=== PATIENT | female | born 1940 | race Caucasian/White ===

== ENCOUNTER 2017-05-03 17:11 | Inpatient (IN) | payer MEDICARE, OTHER ==
[~2017-05-03] VITALS: Ht 149.9 cm; Wt 61.2 kg
[~2017-05-03 17:11] MED LIST: AMLO-145 PO; BENA20TA48 PO; LORA-441 PO; METF500T4 PO; PANT40TA4 PO; ZOLP10TA5 PO
--- NOTE | 2017-05-03 19:48 | ERD ---
ER Documentation Chief Complaint Date/Time DATE: 05/03/17 TIME: 19:44 Chief Complaint lower back pain rad down to caitlyn le HPI 76-year-old female presents here in emergency department for complaints of lower back pain that started 2 weeks ago. Patient describes the pain as sharp pain, 8/10 scale, is worse upon movement mildly better after taking ibuprofen. Patient has been seen in different emergency department for the same problems. Patient states that she was told by her primary care doctor to come to the emergency department that he will admit her to the hospital. Patient does not have any fever or chills. Patient denies any incontinence. Patient denies any direct trauma and affected area. Patient denies any numbness. Patient states that it is hard for her to walk because of the pain. ROS All systems reviewed and are negative except as per history of present illness. Medications Home Meds Active Scripts Pantoprazole (Protonix) 40 Mg Tabec, 40 MG PO DAILY, #30 TAB Prov:DIVYA AGUILAR MD 04/22/16 Amlodipine Besylate* (Amlodipine Besylate*) 5 Mg Tablet, 5 MG PO DAILY, #90 TAB Prov:DIVYA AGUILAR MD 04/22/16 Reported Medications Lorazepam* (Ativan*) 0.5 Mg Tablet, 0.5 MG PO HS Y for SLEEP, #30 TAB 07/28/16 Zolpidem Tartrate* (Zolpidem Tartrate*) 10 Mg Tablet, 10 MG PO QHS Y for INSOMNIA, #30 TAB 07/28/16 Metformin* (Glucophage*) 500 Mg Tab, 500 MG PO WITH LUNCH DINNER, #60 TAB 04/17/16 Benazepril Hcl* (Benazepril Hcl*) 20 Mg Tablet, 20 MG PO BID, #60 TAB 04/17/16 Allergies Allergies: Coded Allergies: Penicillins (Verified Allergy, Mild, 07/28/16) PMhx/Soc History of Surgery: Yes (LT NEPHRECTOMY, CHOLECYSTECTOMY, RT HIP AND KNEE SX, GASTRIC BYPASS) Anesthesia Reaction: No Hx Neurological Disorder: No Hx Respiratory Disorders: No Hx Cardiac Disorders: Yes (HTN, ) Hx Psychiatric Problems: Yes (Depression,) Hx Miscellaneous Medical Probl: Yes (HTN, RT FEMUR FX, DM DEPRESSION, S/P FALL) Hx Alcohol Use: No Hx Substance Use: No Hx Tobacco Use: No Smoking Status: Never smoker FmHx Family History: No coronary disease, No diabetes, No other Physical Exam Vitals Vital Signs Date Time Temp Pulse Resp B/P Pulse Ox O2 Delivery O2 Flow Rate FiO2 05/03/17 17:27 98.6 102 20 139/85 95 Physical Exam GENERAL: The patient is well developed and appropriate for usual state of health, in no apparent distress. CHEST: Clear to auscultation bilaterally. There are no rales, wheezes or rhonchi. HEART: Regular rate and rhythm. No murmurs, clicks, rubs or gallops. No S3 or S4. ABDOMEN: Soft, nontender and nondistended. Good bowel sounds. No rebound or guarding. No gross peritonitis. No gross organomegaly or masses. No Spencer sign or McBurney point tenderness. BACK: No midline or flank tenderness.Muscle spasms noted in the paraspinal aspect of the lumbar spine, positive straight leg test on both legs. EXTREMITIES: Equal pulses bilaterally. There is no peripheral clubbing, cyanosis or edema. No focal swelling or erythema. Full range of motion. Grossly neurovascularly intact. NEURO: Alert and oriented. Cranial nerves 2-12 intact. Motor strength in all 4 extremities with 5/5 strength. Sensation grossly intact. Normal speech and gait. SKIN: There is no apparent rash or petechia. The skin is warm and dry. HEMATOLOGIC AND LYMPHATIC: There is no evidence of excessive bruising or lymphedema. No gross cervical, axillary, or inguinal lymphadenopathy. Result Diagram: 05/03/17202705/03/172027 Results 24 hrs Laboratory Tests Test 05/03/17 20:11 05/03/17 20:28 Urine Color YELLOW Urine Clarity CLEAR Urine pH 5.0 Urine Specific [place] 1.021 Urine Ketones NEGATIVEmg/dL Urine Nitrite POSITIVEmg/dL Urine Bilirubin NEGATIVEmg/dL Urine Urobilinogen NEGATIVEmg/dL Urine Leukocyte Esterase 1+Domitila/ul Urine Microscopic RBC 1/HPF Urine Microscopic WBC 3/HPF Urine Bacteria FEW/HPF Urine Mucus FEW/HPF Urine Hemoglobin 1+mg/dL Urine Glucose NEGATIVEmg/dL Urine Total Protein NEGATIVEmg/dl White Blood Count 9.110^3/ul Red Blood Count 4.3610^6/ul Hemoglobin 12.4g/dl Hematocrit 39.5% Mean Corpuscular Volume 90.6fl Mean Corpuscular Hemoglobin 28.4pg Mean Corpuscular Hemoglobin Concent 31.4g/dl Red Cell Distribution Width 14.5% Platelet Count 05971^3/UL Mean Platelet Volume 10.9fl Neutrophils % 62.2% Lymphocytes % 28.4% Monocytes % 6.1% Eosinophils % 2.7% Basophils % 0.2% Nucleated Red Blood Cells % 0.0/100WBC Neutrophils # (Manual) 5.710^3/ul Lymphocytes # 2.610^3/ul Monocytes # 0.610^3/ul Eosinophils # 0.310^3/ul Basophils # 0.010^3/ul Nucleated Red Blood Cells # 0.010^3/ul Sodium Level 144mmol/L Potassium Level 5.1mmol/L Chloride Level 103mmol/L Carbon Dioxide Level 25mmol/L Anion Gap 21 Blood Urea Nitrogen 27mg/dl Creatinine 0.89mg/dl Glucose Level 127mg/dl Calcium Level 10.3mg/dl Total Bilirubin 0.1mg/dl Direct Bilirubin 0.00mg/dl Indirect Bilirubin 0.1mg/dl Aspartate Amino Transf (AST/SGOT) 25IU/L Alanine Aminotransferase (ALT/SGPT) 54IU/L Alkaline Phosphatase 205IU/L Total Protein 8.9g/dl Albumin 4.6g/dl Globulin 4.30g/dl Albumin/Globulin Ratio 1.06 Current Medications Medications (Trade) Dose Ordered Sig/Bryan Route PRN Reason Start Time Stop Time Status Last Admin Dose Admin Morphine Sulfate (morphine) 4 mg ONCE ONCE IM 05/03/17 20:30 05/03/17 20:30 DC Ondansetron HCl (Zofran Odt) 4 mg ONCE STAT ODT 05/03/17 20:02 05/03/17 20:05 DC Morphine Sulfate (morphine) 2 mg ONCE ONCE IV 05/03/17 20:30 05/03/17 20:31 DC 05/03/17 20:28 Ondansetron HCl (Zofran Inj) 4 mg ONCE STAT IV 05/03/17 20:03 05/03/17 20:05 DC 05/03/17 20:27 PROCEDURE: CT Lumbar Spine. CLINICAL INDICATION: Back pain TECHNIQUE: Continuous axial CT images were obtained. Sagittal and coronal reformations were created from the raw axial data. The images were reviewed on a PACS workstation. The calculated radiation dose measures 431 mGy centimeters. The CTDI measures 16 mGy One or more of the following dose reduction techniques were used: Automated exposure control. Adjustment of the mA and/or kV according to patient size. Use of iterative reconstruction technique. COMPARISON: None available FINDINGS: There is normal alignment of the lumbar spine. There is no evidence of subluxation. Vertebral body heights are preserved. There is severe disk space narrowing at L4-5. There is mild disk space narrowing from L1-L2 through L3- L4. No focal lytic or sclerotic lesions are identified. T12-L1: There is no visualized gross disc abnormality. There is minimal bilateral facet hypertrophy. No bony central or neural foraminal stenosis is identified. L1-L2: There is a minimal diffuse disk bulge. There is minimal bilateral facet hypertrophy. There is no central canal stenosis. There is no neural foraminal stenosis.. L2-L3: There is a mild to moderate diffuse disk bulge, 4 mm. There is minimal bilateral facet hypertrophy. There is minimal central canal stenosis. There is no bony foraminal stenosis.. L3-L4: There is a mild to moderate diffuse disk bulge, 4 mm. There is moderate bilateral facet hypertrophy. There is buckling of the epidural fat.. There is moderate central canal stenosis with AP canal diameter measuring 7.5 mm. There is mild left foraminal stenosis. There is no significant right foraminal stenosis.. L4-L5: There is a moderate diffuse disk bulge, up to approximately 6 mm. There is moderate bilateral facet hypertrophy. There is ligamentum flavum buckling. There is severe appearing central canal stenosis, with canal diameter measuring an estimated 6 x 7 mm. There is mild to moderate left and moderate right bony foraminal stenosis. L5-S1: There is a mild diffuse disk bulge. There is moderate bilateral facet hypertrophy. There is mild to moderate appearing central canal stenosis. There is minimal bilateral foraminal stenosis.. There is no abnormal paravertebral soft tissue mass. There is a left nephrectomy. IMPRESSION: 1. At L4-L5, there is severe appearing central canal stenosis, related to 6 mm disk bulge, moderate facet hypertrophy, and ligamentum flavum buckling. Moderate right and mild-moderate left foraminal stenosis. 2. At L3-L4, there is moderate appearing central canal stenosis, secondary to 4 mm disk bulge, moderate facet hypertrophy, and buckling of the epidural fat. 3. Mild to moderate disk bulge at L2-L3 and mild disk bulge at L5-S1. Mild to moderate appearing central canal stenosis at L5-S1. RPTAT: HBST .Raffaele Fernandez MD, Date Time Electronically viewed and signed by .Raffaele Fernandez MD, on 05/03/2017 21:02 .T/ CC: DELANEY BRITT NP Procedures/MDM Medical Decision Making: Patient's pain is most likely consistent with a back pain caused by degenerative disc disease , considering that intractable back pain, Dr Aguilar her PMD will admit patient for pain control. There is no suspicion for neurovascular compromise. Patient has intact sensation and circulation of the affected extremity and distal extremities. No incontinence, no suspicion for cauda equina syndrome, no saddle anesthesia, no symptoms of any acute bacterial infection, no symptoms of any perirectal abscesses, pilonidal cyst.There is low suspicion for septic arthritis. Patient does not have any fever. No symptoms of any aortic dissection or aortic aneurysm. Radiology exam not indicated at this time. Departure Diagnosis: Primary Impression: Degenerative disc disease Spinal region: lumbosacral Qualified Code: M51.37 - Degeneration of intervertebral disc of lumbosacral region Additional Impression: Intractable back pain Condition: Stable DELANEY BRITT NP May 03, 2017 19:48
[2017-05-03] MEDS ORDERED: ONDANSETRON (ODT) 4 MG TAB ODT STA (20:02)
[2017-05-03] MEDS ORDERED: ONDANSETRON 4 MG INJ IV STA (20:03)
[2017-05-03] MEDS ORDERED: morphine 10 MG INJ IM ONE (20:30)
[2017-05-03] MEDS ORDERED: morphine 2 MG INJ IV ONE (20:30)
[2017-05-03 20:55] LABS: BASOPHILS % 0.2 % (0.0-2.0); EOSINOPHILS # 0.3 10^3/ul (0.0-0.5); EOSINOPHILS % 2.7 % (0.0-7.0); HEMATOCRIT 39.5 % (37.0-47.0); HEMOGLOBIN 12.4 g/dl (12.0-16.0); LYMPHOCYTES # 2.6 10^3/ul (0.8-2.9); LYMPHOCYTES % 28.4 % (15.0-51.0); MEAN CORPUSCULAR HEMOGLOBIN 28.4 pg (29.0-33.0); MEAN CORPUSCULAR HGB CONC 31.4 g/dl (32.0-37.0); MEAN CORPUSCULAR VOLUME 90.6 fl (82.0-101.0); MEAN PLATELET VOLUME 10.9 fl (7.4-10.4); MONOCYTE # 0.6 10^3/ul (0.3-0.9); MONOCYTES % 6.1 % (0.0-11.0); NEUTROPHILS % 62.2 % (39.0-77.0); PLATELET COUNT 307 10^3/UL (140-415); RED BLOOD COUNT 4.36 10^6/ul (4.20-5.40); RED CELL DISTRIBUTION WIDTH 14.5 % (11.5-14.5); WHITE BLOOD COUNT 9.1 10^3/ul (4.8-10.8)
[2017-05-03 21:00] LABS: ADD UMIC YES; UR ASCORBIC ACID NEGATIVE (NEGATIVE); UR BACTERIA FEW /HPF (NONE SEEN); UR BILIRUBIN (Dip) NEGATIVE (NEGATIVE); UR BLOOD (Dip) 1+ mg/dL (NEGATIVE); UR CLARITY CLEAR (CLEAR); UR COLOR YELLOW (YELLOW); UR GLUCOSE (Dip) NEGATIVE (NEGATIVE); UR KETONES (Dip) NEGATIVE (NEGATIVE); UR LEUKOCYTE ESTERASE (Dip) 1+ Leu/ul (NEGATIVE); UR MUCUS FEW /HPF (NONE SEEN); UR NITRITE (Dip) POSITIVE (NEGATIVE); UR RBC 1 /HPF (0-5); UR SPECIFIC GRAVITY (Dip) 1.021 (1.003-1.030); UR TOTAL PROTEIN (Dip) NEGATIVE (NEGATIVE); UR UROBILINOGEN (Dip) NEGATIVE (NEGATIVE)
--- NOTE | 2017-05-03 21:03 | RADRPT ---
PROCEDURE: CT Lumbar Spine. CLINICAL INDICATION: Back pain TECHNIQUE: Continuous axial CT images were obtained. Sagittal and coronal reformations were creat ed from the raw axial data. The images were reviewed on a PACS workstation. The calculated radiatio n dose measures 431 mGy centimeters. The CTDI measures 16 mGy One or more of the following dose reduction techniques were used: Automated exposure control. Adjustment of the mA and/or kV according to patient size. Use of iterative reconstruction technique. COMPARISON: None available FINDINGS: There is normal alignment of the lumbar spine. There is no evidence of subluxation. Vertebral body h eights are preserved. There is severe disk space narrowing at L4-5. There is mild disk space narro wing from L1-L2 through L3-L4. No focal lytic or sclerotic lesions are identified. T12-L1: There is no visualized gross disc abnormality. There is minimal bilateral facet hypertrophy. No bony central or neural foraminal stenosis is identified. L1-L2: There is a minimal diffuse disk bulge. There is minimal bilateral facet hypertrophy. There is no central canal stenosis. There is no neural foraminal stenosis.. L2-L3: There is a mild to moderate diffuse disk bulge, 4 mm. There is minimal bilateral facet hyper trophy. There is minimal central canal stenosis. There is no bony foraminal stenosis.. L3-L4: There is a mild to moderate diffuse disk bulge, 4 mm. There is moderate bilateral facet hype rtrophy. There is buckling of the epidural fat.. There is moderate central canal stenosis with AP canal diameter measuring 7.5 mm. There is mild left foraminal stenosis. There is no significant ri ght foraminal stenosis.. L4-L5: There is a moderate diffuse disk bulge, up to approximately 6 mm. There is moderate bilater al facet hypertrophy. There is ligamentum flavum buckling. There is severe appearing central canal stenosis, with canal diameter measuring an estimated 6 x 7 mm. There is mild to moderate left and moderate right bony foraminal stenosis. L5-S1: There is a mild diffuse disk bulge. There is moderate bilateral facet hypertrophy. There is mild to moderate appearing central canal stenosis. There is minimal bilateral foraminal stenosis.. There is no abnormal paravertebral soft tissue mass. There is a left nephrectomy. IMPRESSION: 1. At L4-L5, there is severe appearing central canal stenosis, related to 6 mm disk bulge, moderate facet hypertrophy, and ligamentum flavum buckling. Moderate right and mild-moderate left foraminal stenosis. 2. At L3-L4, there is moderate appearing central canal stenosis, secondary to 4 mm disk bulge, mode rate facet hypertrophy, and buckling of the epidural fat. 3. Mild to moderate disk bulge at L2-L3 and mild disk bulge at L5-S1. Mild to moderate appearing c entral canal stenosis at L5-S1. RPTAT: HBST .Raffaele Fernandez MD, Date Time Electronically viewed and signed by .Raffaele Fernandez MD, on 05/03/2017 21:02 .T/
[2017-05-03 21:12] LABS: ALBUMIN 4.6 g/dl (3.3-4.9); ALBUMIN/GLOBULIN RATIO 1.06; BILIRUBIN,INDIRECT 0.1 mg/dl (0-1.1); BILIRUBIN,TOTAL 0.1 mg/dl (0.2-1.3); CALCIUM 10.3 mg/dl (8.4-10.2); CREATININE 0.89 mg/dl (0.44-1.00); POTASSIUM 5.1 mmol/L (3.5-5.1); TOTAL PROTEIN 8.9 g/dl (6.1-8.1)
[2017-05-03 22:44] VITALS: TEMP 98.6
[2017-05-03] MEDS ORDERED: BISACODYL 10 MG SUPP PR PRN (23:00)
[2017-05-03] MEDS ORDERED: LORAZEPAM 0.5 MG TAB PO PRN (23:00)
[2017-05-03] MEDS ORDERED: morphine 2 MG INJ IV PRN (23:00)
[2017-05-03] MEDS ORDERED: NACL 0.9% 3 ML SYG IV SCH (23:00)
[2017-05-03] MEDS ORDERED: DEXTROSE 50% 50 ML SYRINGE IV PRN ×2 (23:00)
[2017-05-03] MEDS ORDERED: BISACODYL (EC) 5 MG TAB PO PRN (23:00)
[2017-05-03] MEDS ORDERED: MAGNESIUM HYDROXIDE 30ML CUP PO PRN (23:00)
[2017-05-03] MEDS ORDERED: ALBUTEROL/IPRATROPIUM (NEB) 3 ML AMP HHN PRN (23:00)
[2017-05-03] MEDS ORDERED: GLUCOSE GEL 15 GRAM TUBE PO PRN ×2 (23:00)
[2017-05-03] MEDS ORDERED: ONDANSETRON 4 MG INJ IV PRN (23:00)
[2017-05-03] MEDS ORDERED: GLUCOSE GEL 15 GRAM TUBE BUCCAL PRN (23:00)
[2017-05-03] MEDS ORDERED: DOCUSATE SODIUM 100 MG CAP PO PRN (23:00)
[2017-05-03] MEDS ORDERED: GLUCAGON 1 MG INJ IM PRN (23:00)
[2017-05-03] MEDS ORDERED: NA PHOSPHATE/BIPHOS 133 ML ENEMA PR PRN (23:00)
[2017-05-03] MEDS ORDERED: ACETAMINOPHEN 325 MG TAB PO PRN (23:00)
[2017-05-03] MEDS ORDERED: ACET-141 PO (23:01)
[2017-05-03 23:10] VITALS: Ht 149.9 cm; Wt 61.2 kg
[2017-05-03 23:30] VITALS: BP 181/84; PULSE 61; RESP 20
[2017-05-04] MEDS: HYDROCODONE/APAP (5/325) TAB PO PRN ×3 (00:19→21:00)
[2017-05-04 00:55] VITALS: BP 159/72; PULSE 65; RESP 18
[2017-05-04] MEDS: ZOLPIDEM 5 MG TAB PO PRN ×2 (01:09→23:36)
[2017-05-04 05:30] LABS: BASOPHILS % 0.5 % (0.0-2.0); EOSINOPHILS # 0.3 10^3/ul (0.0-0.5); HEMOGLOBIN 10.9 g/dl (12.0-16.0); LYMPHOCYTES # 2.7 10^3/ul (0.8-2.9); LYMPHOCYTES % 33.6 % (15.0-51.0); MEAN CORPUSCULAR HGB CONC 32.1 g/dl (32.0-37.0); MEAN CORPUSCULAR VOLUME 90.4 fl (82.0-101.0); MEAN PLATELET VOLUME 10.1 fl (7.4-10.4); MONOCYTE # 0.8 10^3/ul (0.3-0.9); MONOCYTES % 10.1 % (0.0-11.0); NEUTROPHILS % 51.3 % (39.0-77.0); PLATELET COUNT 267 10^3/UL (140-415); RED BLOOD COUNT 3.76 10^6/ul (4.20-5.40); RED CELL DISTRIBUTION WIDTH 14.4 % (11.5-14.5); WHITE BLOOD COUNT 7.9 10^3/ul (4.8-10.8)
[2017-05-04 05:49] LABS: ALBUMIN 3.9 g/dl (3.3-4.9); ALBUMIN/GLOBULIN RATIO 1.25; BILIRUBIN,INDIRECT 0.1 mg/dl (0-1.1); BILIRUBIN,TOTAL 0.1 mg/dl (0.2-1.3); CALCIUM 9.5 mg/dl (8.4-10.2); CREATININE 0.9 mg/dl (0.44-1.00)
[2017-05-04 06:06] LABS: INR 1.02; PROTIME 13.4 Sec (12.2-14.2)
[2017-05-04 06:07] LABS: PARTIAL THROMBOPLASTIN TIME 28.2 Sec (25.0-35.0)
[2017-05-04 08:16] VITALS: BP 140/70; RESP 18
[2017-05-04] MEDS: PANTOPRAZOLE (EC) 40 MG TAB PO SCH (09:10)
[2017-05-04] MEDS: AMLODIPINE 5 MG TAB PO SCH (09:10)
[2017-05-04] MEDS: BENAZEPRIL 20 MG TAB PO SCH ×2 (09:10→21:00)
[2017-05-04] MEDS ORDERED: metFORMIN 500 MG TAB PO SCH (11:40)
--- NOTE | 2017-05-04 13:58 | HP ---
Date/Time of Note Date/Time of Note DATE: 05/04/17 TIME: 13:52 Assessment/Plan VTE Prophylaxis VTE Prophylaxis Intervention: SCD's Lines/Catheters IV Catheter Type (from Nrsg): Peripheral IV Urinary Cath still in place: No Assessment/Plan Assessment/Plan 1/ Severe central spinal canal stenosis causing Acute on chronic intractable pain 2. debility due to back pain 3. HTN 4. HL 5. Borderline DM- not on any meds 6. h/o Renal cell CA s/p Right nephrectomy 7. L4-L5, there is severe appearing central canal stenosis, related to 6 mm disk bulge, moderate facet hypertrophy, and ligamentum flavum buckling. Moderate right and mild-moderate left foraminal stenosis. Plan: admit to med/surge floor neurosurgeyr Dr.sean simmons has been consulted to evaluate pt for central spinal canal stenosis pain control with tylenol, norco and IV morhpine d/c Metformin since pt said she has not been taking it BP stable Physical therapy evaluation and treatment pt will need SNF placement HPI/ROS Admit Date/Time Admit Date/Time May 03, 2017 at 21:24 Hx of Present Illness 76-year-old female presented with back pain which has been going on for last two weeks.. Patient describes the pain as sharp pain, 8/10 scale, is worse upon movement mildly better after taking ibuprofen. Patient has been seen in different emergency department for the same problems. Patient states that she was told by her primary care doctor to come to the emergency department that he will admit her to the hospital. Patient does not have any fever or chills. Patient denies any incontinence. Patient denies any direct trauma and affected area. Patient denies any numbness. Patient states that it is hard for her to walk because of the pain. Initial CT lumbar spine ROS back pain, leg pain left, Inability to walk Constitutional: no complaints Eyes: no complaints ENT: no complaints Respiratory: no complaints Cardiovascular: no complaints Gastrointestinal: no complaints Musculoskeletal: back pain, bone/joint pain, neck pain, restricted range of motion Skin: no complaints Neurologic: no complaints Endocrine: no complaints Lymphatic: no complaints Psychological: no complaints Immunologic: no complaints PMH/Family/Social Past Medical History Medical History: high cholesterol, hypertension, other (depression, h/o RCC s/ p right nephrectomy ) Past Surgical History Past Surgical Hx: cholecystectomy, other (nephrectomy, gastric bypass surgery, h/o Right nephrectomy for renal cell CA ) Family History Significant Family History: no pertinent family hx Social History Alcohol Use: none Smoking Status: Never smoker Drug Use: none Exam/Review of Systems Vital Signs Vitals Vital Signs Date Time Temp Pulse Resp B/P Pulse Ox O2 Delivery O2 Flow Rate FiO2 05/04/17 08:16 97.8 18 140/70 94 05/04/17 00:55 65 Room Air Intake and Output 05/03/17 05/03/17 05/04/17 15:00 23:00 07:00 Intake Total 200 ml Balance 200 ml Exam Constitutional: alert Psych: no complaints Head: normocephalic Eyes: nl conjunctiva ENMT: nl external ears & nose Neck: non-tender, supple Respiratory: clear to auscultation, normal air movement Cardiovascular: nl pulses, regular rate and rhythm Gastrointestinal: non-tender, soft Musculoskeletal: joint tenderness, muscle weakness, nl extremities to inspection, other (spine TTP ), range of motion (limited range of motion due to severe pain ) Extremities: calf tenderness, normal pulses Neurological: RN HEDIS II-XII intact Labs Result Diagram: 05/04/17 0505/04/17 0512 Medications Medications Current Medications Amlodipine Besylate (Norvasc) 5 mg DAILY PO Last administered on 05/04/17 09: 10; Admin Dose 5 MG; Start 05/04/17 at 09:00 Benazepril HCl (Lotensin) 20 mg BID PO Last administered on 05/04/17 09:10; Admin Dose 20 MG; Start 05/04/17 at 09:00 Lorazepam (Ativan) 0.5 mg HS PRN PO SLEEP; Start 05/03/17 at 23:00 Pantoprazole (Protonix Tab) 40 mg DAILY PO Last administered on 05/04/17 09:10 ; Admin Dose 40 MG; Start 05/04/17 at 09:00 Zolpidem Tartrate (Ambien) 10 mg QHS PRN PO INSOMNIA Last administered on 01:09; Admin Dose 10 MG; Start 05/03/17 at 23:00 Ondansetron HCl (Zofran Inj) 4 mg Q4H PRN IV NAUSEA AND/OR VOMITING; Start at 23:00 Acetaminophen (Tylenol Tab) 650 mg Q6H PRN PO PAIN LEVEL 1-3 OR FEVER; Start at 23:00 Acetaminophen/ Hydrocodone Bitart ([place] (5/325)) 1 tab Q4H PRN PO MODERATE PAIN LEVEL 4-6 Last administered on 05/04/17t 13:26; Admin Dose 1 TAB; Start at 23:00 Morphine Sulfate (morphine) 2 mg Q4H PRN IV SEVERE PAIN LEVEL 7-10; Start 05/03 at 23:00 Docusate Sodium (Colace) 100 mg Q12H PRN PO CONSTIPATION; Start 05/03/17 at 23: 00 Magnesium Hydroxide (Milk Of Mag) 30 ml DAILY PRN PO CONSTIPATION; Start at 23:00 Bisacodyl (Dulcolax) 5 mg DAILY PRN PO CONSTIPATION; Start 05/03/17 at 23:00 Bisacodyl (Dulcolax Supp) 10 mg DAILY PRN [place] CONSTIPATION; Start 05/03/17 at 23 :00 Sodium Biphosphate/ Sodium Phosphate (Fleet Enema) 133 ml DAILY PRN UT CONSTIPATION; Start 05/03/17 at 23:00 Miscellaneous Information 1 ea NOTE XX ; Start 05/03/17 at 23:00 Glucose (Glutose) 15 gm Q15M PRN PO DECREASED GLUCOSE; Start 05/03/17 at 23:00 Glucose (Glutose) 22.5 gm Q15M PRN PO DECREASED GLUCOSE; Start 05/03/17 at 23: 00 Dextrose (D50w Syringe) 25 ml Q15M PRN IV DECREASED GLUCOSE; Start 05/03/17 at 23:00 Dextrose (D50w Syringe) 50 ml Q15M PRN IV DECREASED GLUCOSE; Start 05/03/17 at 23:00 Glucagon (Glucagen) 1 mg Q15M PRN IM DECREASED GLUCOSE; Start 05/03/17 at 23:00 Glucose (Glutose) 15 gm Q15M PRN BUCCAL DECREASED GLUCOSE; Start 05/03/17 at 23 :00 DIVYA FAN MD May 04, 2017 13:58
[2017-05-04 15:05] VITALS: BP 132/75; RESP 18
[2017-05-04 20:20] VITALS: BP 128/71; RESP 18
--- NOTE | 2017-05-04 20:44 | CONS ---
DATE OF ADMISSION: 05/03/2017 DATE OF CONSULTATION: 05/04/2017 REASON FOR CONSULTATION: Preoperative evaluation. REFERRING PHYSICIAN: Alfonso Aguilar MD HISTORY OF PRESENT ILLNESS: Ms. Delaney is a 76-year-old female with a history of hypertension, diet-controlled diabetes, dyslipidemia, and renal cell carcinoma, status post right nephrectomy, who presented with complaints of worsening lower extremity pain and weakness, difficulty standing. Patient subsequently presented to the emergency room, where upon arrival, temperature is 98.6, blood pressure 139/85, pulse 102, respiratory rate 20, satting 95 percent. Patient's labs: White blood count 9.1, hemoglobin 12.4, platelet count 307. A sodium 144, potassium 5.1, creatinine 0.8, BUN 27, AST 25, ALT 24, alk phos 205. INR 1.0. UA borderline positive. Patient underwent a lumbar spine CT, revealing L4-L5 severe-appearing central canal stenosis related to a 6-mm disc bulge, moderate facet hypertrophy and ligamentum flavum buckling, moderate right and mild-to- moderate left foraminal stenosis. At L3-L4 there is moderate- appearing central canal stenosis secondary to a 4-mm disc bulge, mild to moderate disc bulge at L2-L3, mild disc bulge at L5-S1 and mild to moderate-appearing central canal stenosis at L5-S1. Patient does not have a chart for my review at this time. Patient denies any recent chest pain, shortness of breath and states prior to onset of symptoms approximately 4 weeks ago, she would walk most places without any significant exertional chest pain or dyspnea on exertion. PAST MEDICAL HISTORY: As above in HPI, this patient has a history of cholecystectomy and by chart, also a possible history of a gastric bypass, but unclear if this is true. MEDICATION: Currently in hospital: 1. Norvasc 5 mg daily. 2. Benazepril 10 mg p.o. b.i.d. 3. Protonix 40 mg daily. 4. Ambien p.r.n. 5. Zofran p.r.n. 6. Tylenol p.r.n. 7. Orovada p.r.n. 8. . 9. Dulcolax suppository p.r.n. 10. DuoNeb p.r.n. ALLERGIES: PENICILLIN. SOCIAL HISTORY: No tobacco, EtOH or illicit drug use. FAMILY HISTORY: Negative for sudden cardiac or early CAD. REVIEW OF SYSTEMS: As above in HPI. CONSTITUTIONAL: No fevers or chills. RESPIRATORY: No current shortness of breath. CARDIOVASCULAR: No current chest pain. GASTROINTESTINAL: No vomiting. GENITOURINARY: No hematuria. MUSCULOSKELETAL: Back pain, lower extremity pain and weakness. PSYCHIATRIC: Possible depression. NEUROLOGIC: No documented CVA. PHYSICAL EXAMINATION: VITAL SIGNS: Temperature of 98.2, blood pressure most recent 132/75, pulse 86, respiratory rate 18, satting 92 percent. GENERAL: The patient is alert, awake, in no acute distress. NECK: JVP approximately 8-9 cm of water. LUNGS: Fair air movement throughout. HEART: Regular rate and rhythm. Normal S1, S2, 1/6 systolic murmur. Nondisplaced PMI. ABDOMEN: Positive bowel sounds. Soft. EXTREMITIES: No pitting edema, 1 plus pulses. Bilateral posterior tibial. LABORATORY: As above in HPI, with most recently from today: Sodium 144, potassium 5.0, creatinine 0.9, BUN of 27. White blood cell count 7.9, hemoglobin 10.9, platelet count 267. UA positive. IMAGING STUDIES: As above in HPI. No further imaging studies for my review at this time. No electrocardiograms for my review at this time. IMPRESSION: 1. Preoperative evaluation prior to possible lumbosacral spinal surgery for spinal stenosis. 2. Hypertension, under reasonable control on current medications. 3. Systolic murmur, short. 4. Spinal stenosis. 5. Lower extremity weakness. 6. Diet-controlled diabetes mellitus. RECOMMENDATIONS: 1. At this time, would check a baseline EKG now and a repeat EKG in the morning. 2. Would check troponins q.6h x2, in anticipation of possible upcoming surgery. Just discharged. Patient has not had any recent acute coronary syndromes. 3. Will consider initiation of beta dheeraj in this patient after review of the patient's ECG or echo if found to have abnormalities. 4. Will check a 2D echo to further assess ejection fraction, wall motion or any major abnormalities and will check a fasting lipid panel for general risk stratification and initiate lipid- lowering medications, if necessary. 5. Continue the patient's current Norvasc and benazepril for blood pressure control at this time. 6. Continue patient's pain control. 7. Ongoing neurologic evaluation with pending MRI and possible neurosurgery soon. Thank you for allowing me to take part in the care of this patient. I will continue to follow him very closely with you, with further recommendations pending his surgical candidacy of this patient to be made after completion of above studies. Dictated By: Flakito Campos /dougie/clarisa /Document#: [id number] CC: Alfonso Aguilar MD;*End*
--- NOTE | 2017-05-04 22:26 | RADRPT ---
PROCEDURE: MRI lumbar spine CLINICAL INDICATION: Low back pain with bilateral lower extremity radiculopathy TECHNIQUE: An MRI of the lumbar spine was performed on a high resolution high definition, MRI scan ner utilizing the following sequences: Sagittal T1 weighted, sagittal and dual echo axial T2 weighte d, and sagittal T2 weighted with fat saturation. COMPARISON: None FINDINGS: There is straightening of the normal lordosis of the lumbar spine. No evidence for acute fractures o r traumatic subluxations are present. Modic type 1 degenerative endplate changes are present at the L4-5 level. Preservation of vertebral body heights are noted.. The discs demonstrate disk desiccati on at the L2-3 through L5-S1 levels and severe disk space height loss at L4-5. 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 The conus m edullaris terminates normally at the L1 level. The bilateral paravertebral soft tissues are normal. The specific axial levels are as follows: T12 - L1: The disk is normal in appearance. The central canal, subarticular recess, and neural fo ramen are patent. Mild bilateral facet arthropathy is present. L1 - L2: The disk is normal in appearance. The central canal, subarticular recess, and neural for amen are patent. Mild bilateral facet arthropathy is present. L2 - L3: Disk desiccation is present. An eccentric bulge and osteophyte to the left is noted which measures 3 mm. Mild bilateral facet arthropathy and ligamentum flavum hypertrophy is present. AP canal dimension is 8.1 mm. This results in a mild central canal stenosis, moderate left subarticula r recess stenosis and moderate left and mild right neural foraminal stenosis. Recommend correlatio n with a left greater than right L2 radiculopathy. L3 - L4: Disk desiccation is present with a 3 mm mild broad-based bulge. Mild bilateral facet arth ropathy and facet effusions are present. AP canal dimension is 6.5 mm. This results in a moderate to severe central canal stenosis, bilateral subarticular recess stenosis and mild bilateral neural f oraminal stenosis. Recommend correlation with a bilateral L3 radiculopathy. L4 - L5: Severe degenerative endplate changes, disk desiccation and disk space height loss is prese nt. A 3 mm mild broad-based bulge and osteophyte is noted. AP canal dimension is 4 mm. Moderate b ilateral facet arthropathy and ligamentum hypertrophy is also present. Congenital short pedicles con tributes to the acquired stenosis at this level. These findings results in a severe central, bilater al subarticular recess and severe bilateral neural foraminal stenosis. Recommend correlation with a bilateral L4 radiculopathy secondary to neural foraminal stenosis and a bilateral L5 radiculopathy secondary to subarticular recess severe stenosis. L5 - S1: Disk desiccation is present with preservation of disk space height. Mild 3 mm broad-based bulge is present. Moderate right greater than left facet osteoarthropathy and ligamentum hypertrop hy is present. AP canal dimension is 5.5 mm. Moderate to severe central canal stenosis, mild bilate ral subarticular recess stenosis and mild bilateral neural foraminal stenosis is present. Recommend correlation with a bilateral L5 and S1 radiculopathy. IMPRESSION: 1. Straightening of the normal lumbar lordosis without acute fractures or traumatic subluxations. 2. Congenital superimposed on acquired spinal canal stenosis as noted above at the L2-3 through L5- S1 levels. 3. Broad-based disk osteophyte complex with degenerative facet osteoarthropathy resulting in a cezar re central canal stenosis at L4-5, moderate to severe at L3-4 and L5-S1 and mild at L2-3. 4. Multilevel neural foraminal stenosis at the L2-3 through L5-S1 levels and correlate with respect frank radiculopathy as noted above. 5. Multilevel disk desiccation at L2-3 through L5-S1 with severe disk space height loss and degener ative endplate changes at L4-5 . 6. 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 RPTAT: HDC .Monica Fatima MD, MD Date Time Electronically viewed and signed by .Monica Fatima MD, on 05/04/2017 22:25 .C/
[2017-05-05] MEDS: DEXTROSE 5%-0.45% NACL 1,000 ML IV SCH (00:18)
[2017-05-05 06:15] LABS: CHOL/HDL RATIO 2.4 RATIO
--- NOTE | 2017-05-05 06:52 | CONS ---
Date/Time of Note Date/Time of Note DATE: 05/05/17 TIME: 06:51 Assessment/Plan Assessment/Plan Additional Assessment/Plan Date of consultation: 05/04/2017 Consulting service: Neurosurgery. Requesting physician: Dr. Alfonso Aguilar This 76-year-old female with approximately 6-8 weeks history of increasing axial low back pain and to a much greater degree bilateral lower extremity radiating pain, numbness and weakness down to her ankles. The patient tells me that initially with the above symptoms began, She was able to walk around, but with pain. However, for the past several weeks, She is no longer able to walk or stand for more than 1 or 2 minutes at a time secondary to bilateral lower extremity symptoms as described above. The patient's above symptoms seem to be greatly decreased with her lying down or sitting. Patient denies any bowel or bladder dysfunction. He denies any saddle anesthesia. She denies any recent trauma to her low back or lower extremities. The patient has had degenerative changes of her knees and has had prior injections to her knees. However, the patient denies any prior episodes of low back pain or bilateral lower extremity symptoms that she is describing currently. The patient's symptoms were so severe that she actually presented to the [facility] emergency room about a week ago for the same symptoms and was told that she has lumbar stenosis and needs to follow up with a neurosurgeon. However, the patient's symptoms increased further and the patient needed to present to the emergency department again this time to [facility] and has subsequently been admitted. Past medical history: Hypercholesterolemia, hypertension, depression Past surgical history: History of renal cell cancer status post nephrectomy, cholecystectomy, gastric bypass surgery Family history: Noncontributory. Review of systems: Please see above for pertinent positives and negatives. The patient denies chest pain, shortness of breath, fevers, or heartburn Allergies: Penicillin? Social history: The patient lives with several grandchildren. She denies smoking tobacco, drinking alcoholic beverages, or use of illicit or recreational drugs. Physical examination: The patient is seen at bedside. She is obese. She is awake, alert and oriented 4. Extraocular movements are grossly normal. Face is symmetric. Motor strength bilateral upper extremities is 5 minus out of 5 proximally and distally. Motor strength in bilateral lower extremities is 4 out of 5, at least bilateral lower extremity's proximally and distally except for bilateral EHLs that are 4 out of 5 and bilateral ankle dorsiflexion that is 4+ out of 5 and bilateral ankle plantar flexion that is 4+ out of 5. Some of the examination is limited secondary to bilateral lower extremity pain. Sensation to light touch seems to be decreased bilateral lower extremities in the L5 versus S1 dermatomes. Deep tendon reflexes are hypoactive bilateral upper and lower extremities. Muscle bulk and tone is normal bilateral upper and lower extremities. Straight leg raise more than 30 laterally causes radiating pain down bilateral lower extremities and to a lesser extent axial low back pain. The patient has [id number] tenderness involving the midline and over the paraspinal lumbosacral regions. There is no peroneal anesthesia. Rectal examination has been deferred per patient request. Gait testing cannot be done because the patient is unable to stand or walk secondary to bilateral lower extremity symptoms as described above. Imaging: The patient has received a CT of the lumbar spine that shows multilevel lumbar spondylotic changes. Seems to be at least moderate to severe stenosis involving the L4-L5 level and to a lesser degree at L3-L4 and L5-S1 levels. However, this is only a CT of the lumbar spine and not an MRI and further interpretation for lumbar stenosis is limited on a CT scan alone. Assessment/plan: This is an elderly female with approximately 6-8 weeks of symptoms that seem to be consistent with neurogenic claudication and lumbar radiculopathy secondary to lumbar stenosis. The patient's CT of the lumbar spine does seem to suggest that the patient does have lumbar stenosis at least at L4-L5. However, as I have explained to the patient in great detail an MRI is gold standard in further assessing the patient's spinal canal and to evaluate for lumbar stenosis or any other possible pathology involving the neural elements. An MRI of the lumbar spine has been already ordered. I have also discussed the various treatment options for lumbar stenosis including further observation/physical therapy, pain medications versus interventional pain management including lumbar epidural steroid injections versus surgical decompression that can be done minimally invasively. The patient says that at this point, she is completely debilitated and unable to walk. She does not want to wait any longer. She is less inclined to proceed with interventional pain management. Given the fact that she would still need to wait to be referred to an interventional pain management physician and she also wants a more definitive treatment of her pathology rather than transient possible improvement of her symptoms with lumbar epidural steroid injection. I have explained to the patient that I will further discuss the MRI findings of the lumbar spine Once the imaging studies are done. This can also be explained to the patient's family members. At that time. If the patient wishes to proceed with lumbar laminectomy and possible microdiscectomy, she will be scheduled for the operation. Medical and cardiac clearance will also be obtained preoperatively. ADRIANA FREEMAN MD May 05, 2017 06:52
--- NOTE | 2017-05-05 07:51 | RADRPT ---
PROCEDURE: XR Chest 1 View. CLINICAL INDICATION: Shortness of breath. TECHNIQUE: AP view of the chest was obtained. COMPARISON: March 03, 2008 FINDINGS: The cardiomediastinal silhouette is within normal limits. Mildly elevated right hemidiaphragm is obs erved. Subsegmental atelectasis is noted at the right lung base. No consolidations are identified. No pneumothorax is seen. Osseous structures are intact. IMPRESSION: Elevated right hemidiaphragm with associated basilar atelectasis. RPTAT: AA .Joni Oakes MD, Date Time Electronically viewed and signed by .Joni Oakes MD, on 05/05/2017 07:50 .P/
[2017-05-05 08:15] VITALS: BP 130/60; RESP 18
[2017-05-05] MEDS: BENAZEPRIL 20 MG TAB PO SCH ×2 (08:33→21:03)
[2017-05-05] MEDS: PANTOPRAZOLE (EC) 40 MG TAB PO SCH (08:33)
[2017-05-05] MEDS: AMLODIPINE 5 MG TAB PO SCH (08:34)
--- NOTE | 2017-05-05 09:39 | PN ---
Date/Time of Note Date/Time of Note DATE: 05/05/17 TIME: 09:36 Assessment/Plan VTE Prophylaxis VTE Prophylaxis Intervention: SCD's Lines/Catheters IV Catheter Type (from Nrsg): Peripheral IV Urinary Cath still in place: No Assessment/Plan Assessment/Plan 1/ Severe central spinal canal stenosis causing Acute on chronic intractable pain,acute lumbar radiculopathy 2. Severe debility due to back pain and Inability to walk safely 3. HTN 4. HL 5. Borderline DM- not on any meds 6. h/o Renal cell CA s/p Right nephrectomy 7. L4-L5, there is severe appearing central canal stenosis, related to 6 mm disk bulge, moderate facet hypertrophy, and ligamentum flavum buckling. Moderate right and mild-moderate left foraminal stenosis. Plan: S/p Neurosurgery consult, Dr.Sean Frey saw pt, MRI LS spine done, Plan for laminectomy today if cleared 12 lead EKG NSR< CXR negative, CBC, CMP, coagulation panel unremarkable- pt is medically stable for surgery with appropriate surgical risks and complications, Cardiolgoy saw pt, pt is to have ECHO today prior to surgery pain control with tylenol, norco and IV morhpine- pain management has been consulted for better pain control BP stable Physical therapy evaluation and treatment pt will need SNF placement Subjective 24 Hr Interval Summary Free Text/Dictation no acute events, Bp stable, afebrile, No c hst pain, pre op negative Exam/Review of Systems Vital Signs Vitals Vital Signs Date Time Temp Pulse Resp B/P Pulse Ox O2 Delivery O2 Flow Rate FiO2 05/05/17 08:15 98.1 79 18 130/60 98 05/04/17 00:55 Room Air Intake and Output 05/04/17 05/04/17 05/05/17 15:00 23:00 07:00 Intake Total 520 ml 550 ml Output Total 700 ml Balance 520 ml -150 ml Exam Constitutional: alert Psych: no complaints Head: normocephalic Eyes: nl conjunctiva ENMT: nl external ears & nose Neck: non-tender, supple Respiratory: clear to auscultation, normal air movement Cardiovascular: nl pulses, regular rate and rhythm Gastrointestinal: non-tender, soft Musculoskeletal: joint tenderness, muscle weakness, nl extremities to inspection, other (spine TTP ), range of motion (limited range of motion due to severe pain ) Extremities: calf tenderness, normal pulses Neurological: SPINAL SURGEON II-XII intact Results Result Diagram: 05/04/17 0511 05/04/17 0512 Results 24 hrs Laboratory Tests Test 05/05/17 00:25 05/05/17 05:05 Troponin I < 0.012 < 0.012 Triglycerides Level 184 H Cholesterol Level 140 LDL Cholesterol, Calculated 45 HDL Cholesterol 58 Cholesterol/HDL Ratio 2.4 Medications Medications Current Medications Amlodipine Besylate (Norvasc) 5 mg DAILY PO Last administered on 05/05/17 08: 34; Admin Dose 5 MG; Start 05/04/17 at 09:00 Benazepril HCl (Lotensin) 20 mg BID PO Last administered on 05/05/17 08:33; Admin Dose 20 MG; Start 05/04/17 at 09:00 Lorazepam (Ativan) 0.5 mg HS PRN PO SLEEP; Start 05/03/17 at 23:00 Pantoprazole (Protonix Tab) 40 mg DAILY PO Last administered on 05/05/17 08:33 ; Admin Dose 40 MG; Start 05/04/17 at 09:00 Zolpidem Tartrate (Ambien) 10 mg QHS PRN PO INSOMNIA Last administered on 23:36; Admin Dose 10 MG; Start 05/03/17 at 23:00 Ondansetron HCl (Zofran Inj) 4 mg Q4H PRN IV NAUSEA AND/OR VOMITING Last administered on 05/04/17 22:42; Admin Dose 4 MG; Start 05/03/17 at 23:00 Acetaminophen (Tylenol Tab) 650 mg Q6H PRN PO PAIN LEVEL 1-3 OR FEVER; Start at 23:00 Acetaminophen/ Hydrocodone Bitart ([place] (5/325)) 1 tab Q4H PRN PO MODERATE PAIN LEVEL 4-6 Last administered on 05/04/17 21:00; Admin Dose 1 TAB; Start at 23:00 Morphine Sulfate (morphine) 2 mg Q4H PRN IV SEVERE PAIN LEVEL 7-10; Start 05/03 at 23:00 Docusate Sodium (Colace) 100 mg Q12H PRN PO CONSTIPATION; Start 05/03/17 at 23: 00 Magnesium Hydroxide (Milk Of Mag) 30 ml DAILY PRN PO CONSTIPATION; Start at 23:00 Bisacodyl (Dulcolax) 5 mg DAILY PRN PO CONSTIPATION; Start 05/03/17 at 23:00 Bisacodyl (Dulcolax Supp) 10 mg DAILY PRN [place] CONSTIPATION; Start 05/03/17 at 23 :00 Sodium Biphosphate/ Sodium Phosphate (Fleet Enema) 133 ml DAILY PRN ND CONSTIPATION; Start 05/03/17 at 23:00 Miscellaneous Information 1 ea NOTE XX ; Start 05/03/17 at 23:00 Glucose (Glutose) 15 gm Q15M PRN PO DECREASED GLUCOSE; Start 05/03/17 at 23:00 Glucose (Glutose) 22.5 gm Q15M PRN PO DECREASED GLUCOSE; Start 05/03/17 at 23: 00 Dextrose (D50w Syringe) 25 ml Q15M PRN IV DECREASED GLUCOSE; Start 05/03/17 at 23:00 Dextrose (D50w Syringe) 50 ml Q15M PRN IV DECREASED GLUCOSE; Start 05/03/17 at 23:00 Glucagon (Glucagen) 1 mg Q15M PRN IM DECREASED GLUCOSE; Start 05/03/17 at 23:00 Glucose 15 gm 15 gm Q15M PRN BUCCAL DECREASED GLUCOSE; Start 05/03/17 at 23:00 Dextrose/Sodium Chloride (D5-1/2ns) 1,000 ml @ 40 mls/hr Q24H IV Last administered on 05/05/17t 00:18; Admin Dose 40 MLS/HR; Start 05/05/17 at 00:30 DIVYA FAN MD May 05, 2017 09:39
[2017-05-05] MEDS: HYDROCODONE/APAP (5/325) TAB PO PRN (15:53)
--- NOTE | 2017-05-05 17:05 | RADRPT ---
Vent Rate: 66 bpm RR Interval: 0 msec TN Interval: 186 msec QRS Duration: 70 msec QT Interval: 404 msec QTC Interval: 423 msec P-R-T [place]: 39 - 50 - 64 degrees Normal sinus rhythm Normal ECG Electronically Signed By: Isaias Brown [id number]
[2017-05-05] MEDS ORDERED: 1/2 NS + KCL 20 MEQ 1,000 ML IV SCH (20:00)
--- NOTE | 2017-05-05 20:12 | CONS ---
Date/Time of Note Date/Time of Note DATE: 05/05/17 TIME: 20:08 Assessment/Plan Assessment/Plan Chief Complaint/Hosp Course IMPRESSION: 1. Preoperative evaluation prior to possible lumbosacral spinal surgery for spinal stenosis.-negative trop x 2/no changes on serial ecg 2. Hypertension, under reasonable control on current medications. 3. Systolic murmur, short. 4. Spinal stenosis. 5. Lower extremity weakness. 6. Diet-controlled diabetes mellitus. Recc: -Serial ecg's -continue norvasc/benazepril -will f/u echo and if no sig abnl then will will be ok to proceed to OR at moderate risk without further noninvasive evaluation -check post-op ecg -Pain control Problems: Consultation Date/Type/Reason Admit Date/Time May 03, 2017 at 21:24 Initial Consult Date 05/04/2017 Type of Consultation: cardiology Reason for Consultation preop Referring Provider: DIVYA FAN MD Exam/Review of Systems Vital Signs Vitals Vital Signs Date Time Temp Pulse Resp B/P Pulse Ox O2 Delivery O2 Flow Rate FiO2 05/05/17 08:15 98.1 79 18 130/60 98 05/04/17 00:55 Room Air Intake and Output 05/04/17 05/04/17 05/05/17 15:00 23:00 07:00 Intake Total 520 ml 550 ml Output Total 700 ml Balance 520 ml -150 ml Exam Review of Systems: CONSTITUTIONAL: No fevers, chills. PULMONARY: No sob CARDIOVASCULAR: No chest pain/palpitations GASTROINTESTINAL: No nausea/vomiting. GENITOURINARY: No hematuria/dysuria. MUSCULOSKELETAL: No myagias/arthalgias. PSYCHIATRIC: The patient denies depression. NEUROLOGIC: No weakness Constitutional: alert Psych: no complaints Head: normocephalic ENMT: mucosa pink and moist Neck: jvd (8 cm water), supple Respiratory: clear to auscultation Cardiovascular: regular rate and rhythm Gastrointestinal: non-tender, soft Musculoskeletal: muscle tone (normal) Extremities: edema (none) Neurological: other (No focal deficits) Results Result Diagram: 05/04/17 0511 05/04/17 0512 Results 24 hrs Laboratory Tests Test 05/05/17 00:25 05/05/17 05:05 Troponin I < 0.012 < 0.012 Triglycerides Level 184 H Cholesterol Level 140 LDL Cholesterol, Calculated 45 HDL Cholesterol 58 Cholesterol/HDL Ratio 2.4 Medications Medications Current Medications Amlodipine Besylate (Norvasc) 5 mg DAILY PO Last administered on 05/05/17 08: 34; Admin Dose 5 MG; Start 05/04/17 at 09:00 Benazepril HCl (Lotensin) 20 mg BID PO Last administered on 05/05/17 08:33; Admin Dose 20 MG; Start 05/04/17 at 09:00 Lorazepam (Ativan) 0.5 mg HS PRN PO SLEEP; Start 05/03/17 at 23:00 Pantoprazole (Protonix Tab) 40 mg DAILY PO Last administered on 05/05/17 08:33 ; Admin Dose 40 MG; Start 05/04/17 at 09:00 Zolpidem Tartrate (Ambien) 10 mg QHS PRN PO INSOMNIA Last administered on 23:36; Admin Dose 10 MG; Start 05/03/17 at 23:00 Ondansetron HCl (Zofran Inj) 4 mg Q4H PRN IV NAUSEA AND/OR VOMITING Last administered on 05/04/17 22:42; Admin Dose 4 MG; Start 05/03/17 at 23:00 Acetaminophen (Tylenol Tab) 650 mg Q6H PRN PO PAIN LEVEL 1-3 OR FEVER; Start at 23:00 Acetaminophen/ Hydrocodone Bitart ([place] (5/325)) 1 tab Q4H PRN PO MODERATE PAIN LEVEL 4-6 Last administered on 05/05/17 15:53; Admin Dose 1 TAB; Start at 23:00 Morphine Sulfate (morphine) 2 mg Q4H PRN IV SEVERE PAIN LEVEL 7-10; Start 05/03 at 23:00 Docusate Sodium (Colace) 100 mg Q12H PRN PO CONSTIPATION; Start 05/03/17 at 23: 00 Magnesium Hydroxide (Milk Of Mag) 30 ml DAILY PRN PO CONSTIPATION Last administered on 05/05/17 16:07; Admin Dose 30 ML; Start 05/03/17 at 23:00 Bisacodyl (Dulcolax) 5 mg DAILY PRN PO CONSTIPATION; Start 05/03/17 at 23:00 Bisacodyl (Dulcolax Supp) 10 mg DAILY PRN [place] CONSTIPATION; Start 05/03/17 at 23 :00 Sodium Biphosphate/ Sodium Phosphate (Fleet Enema) 133 ml DAILY PRN [place] CONSTIPATION; Start 05/03/17 at 23:00 Miscellaneous Information 1 ea NOTE XX ; Start 05/03/17 at 23:00 Glucose (Glutose) 15 gm Q15M PRN PO DECREASED GLUCOSE; Start 05/03/17 at 23:00 Glucose (Glutose) 22.5 gm Q15M PRN PO DECREASED GLUCOSE; Start 05/03/17 at 23: 00 Dextrose (D50w Syringe) 25 ml Q15M PRN IV DECREASED GLUCOSE; Start 05/03/17 at 23:00 Dextrose (D50w Syringe) 50 ml Q15M PRN IV DECREASED GLUCOSE; Start 05/03/17 at 23:00 Glucagon (Glucagen) 1 mg Q15M PRN IM DECREASED GLUCOSE; Start 05/03/17 at 23:00 Glucose 15 gm 15 gm Q15M PRN BUCCAL DECREASED GLUCOSE; Start 05/03/17 at 23:00 Dextrose/Sodium Chloride 1,000 ml @ 40 mls/hr Q24H IV Last administered on t 00:18; Admin Dose 40 MLS/HR; Start 05/05/17 at 00:30 Potassium Chloride/Sodium Chloride (1/2 NS + KCl 20 Meq) 1,000 ml @ 75 mls/hr [id number] IV ; Start 05/05/17 at 20:00; Status MARQUISE SCHNEIDER May 05, 2017 20:12
[2017-05-05] MEDS: ZOLPIDEM 5 MG TAB PO PRN (21:07)
[2017-05-05 21:09] VITALS: BP 127/64; RESP 20
[2017-05-05 22:02] LABS: CALCIUM 9.4 mg/dl (8.4-10.2); CREATININE 0.85 mg/dl (0.44-1.00); POTASSIUM 5.1 mmol/L (3.5-5.1)
--- NOTE | 2017-05-05 23:03 | RADRPT ---
Echocardiogram Report Patient Name: JANE ADAMES Gender: Female Date: 1940 Study Date: 05-May-2017 Technical Advisor: [facility] Location: [id number] Ref. Physician: MARQUISE HAIRSTON Quality: Good Procedures: Transthoracic echocardiogram with complete 2D, M-Mode, and doppler examination. Indications: Pre-op. 2D/M Mode Doppler Measurement Value Normal Ranges Measurement Value Normal Ranges LVIDd 2D 3.9 3.5 - 5.6 cm AV Peak Ramon 1.1 m/sec LVIDs 2D 2.7 2.1 - 4.1 cm AV Peak PG 5.0 mmHg FS 2D 30.1 % LVOT Peak Ramon 0.8 m/sec LVPWd 2D 1.0 0.6 - 1.1 cm LVOT Peak PG 3.0 mmHg IVSd 2D 1.0 0.6 - 1.1 cm MV E Peak Ramon 0.4 m/sec IVS/LVPW 2D 1.0 MV A Peak Ramon 0.7 m/sec AoR Diam 2D 2.6 2.0 - 3.7 cm MV E/A 0.5 LA/Ao 2D 1 0 - 1 MV Decel Time 211 msec EDV 2D 58.9 cm3 MV E/A 0.5 ESV 2D 20.1 cm3 LA Dimen 2D 2.5 2.3 - 4.0 cm Findings Left Ventricle: Normal left ventricular systolic function. Normal left ventricular cavity size. Normal left ventricular wall thickness. Ejection fraction is visually estimated at 60 %. Tissue Doppler/Mitral Doppler indices are consistent with impaired relaxation (Stage I diastolic dysfunction). Right Ventricle: Normal right ventricular size. Normal right ventricular systolic function. Left Atrium: The left atrium is normal in size. Right Atrium: The right atrium is normal in size. Mitral Valve: Normal appearance and function of the mitral valve with trace physiologic regurgitation. Aortic Valve: No hemodynamically significant aortic stenosis by doppler. Aortic cusps appear mildly calcified. Trace aortic valve regurgitation. Tricuspid Valve: Normal appearance of the tricuspid valve. Unable to obtain RVSP due to minimal presence of tricuspid regurgitation. Pulmonic Valve: Normal pulmonic valve appearance. Pericardium: Normal pericardium with no significant pericardial effusion. Aorta: Normal aortic root. IVC: Normal size and normal respiratory collapse consistent with normal right atrial pressure. Conclusions 1.Normal left ventricular systolic function. Normal left ventricular cavity size. Normal left ventricular wall thickness. Ejection fraction is visually estimated at 60 %. Tissue Doppler/Mitral Doppler indices are consistent with impaired relaxation (Stage I diastolic dysfunction). 2.Normal appearance and function of the mitral valve with trace physiologic regurgitation. 3.No hemodynamically significant aortic stenosis by doppler. Aortic cusps appear mildly calcified. Trace aortic valve regurgitation. 4.Normal appearance of the tricuspid valve. Unable to obtain RVSP due to minimal presence of tricuspid regurgitation. Electronically Signed By: Marquise Hairston 05-May-2017 23:02:02 0700 Patient Name: JANE ADAMES Study Date: 05-May-2017 [id number]
[2017-05-06] VITALS (22 sets, daily range): BP systolic 123–160; BP diastolic 50–74; PULSE 72–112; RESP 15–20
[2017-05-06] MEDS: DEXTROSE 5%-0.45% NACL 1,000 ML IV SCH (04:31)
[2017-05-06 05:33] LABS: BASOPHILS % 0.3 % (0.0-2.0); EOSINOPHILS # 0.3 10^3/ul (0.0-0.5); EOSINOPHILS % 3.4 % (0.0-7.0); HEMATOCRIT 35.3 % (37.0-47.0); HEMOGLOBIN 11.1 g/dl (12.0-16.0); LYMPHOCYTES # 2.4 10^3/ul (0.8-2.9); LYMPHOCYTES % 27.9 % (15.0-51.0); MEAN CORPUSCULAR HEMOGLOBIN 28.2 pg (29.0-33.0); MEAN CORPUSCULAR HGB CONC 31.4 g/dl (32.0-37.0); MEAN CORPUSCULAR VOLUME 89.6 fl (82.0-101.0); MEAN PLATELET VOLUME 10.3 fl (7.4-10.4); MONOCYTE # 0.8 10^3/ul (0.3-0.9); MONOCYTES % 8.7 % (0.0-11.0); NEUTROPHILS % 59.2 % (39.0-77.0); PLATELET COUNT 275 10^3/UL (140-415); RED BLOOD COUNT 3.94 10^6/ul (4.20-5.40); RED CELL DISTRIBUTION WIDTH 14.1 % (11.5-14.5); WHITE BLOOD COUNT 8.7 10^3/ul (4.8-10.8)
[2017-05-06 05:45] LABS: INR 1.01; PROTIME 13.3 Sec (12.2-14.2)
[2017-05-06 05:46] LABS: PARTIAL THROMBOPLASTIN TIME 28.5 Sec (25.0-35.0)
[2017-05-06 06:04] LABS: ALBUMIN 3.7 g/dl (3.3-4.9); ALBUMIN/GLOBULIN RATIO 1.15; BILIRUBIN,INDIRECT 0.2 mg/dl (0-1.1); BILIRUBIN,TOTAL 0.2 mg/dl (0.2-1.3); CALCIUM 9.3 mg/dl (8.4-10.2); CREATININE 0.77 mg/dl (0.44-1.00); POTASSIUM 4.6 mmol/L (3.5-5.1); TOTAL PROTEIN 6.9 g/dl (6.1-8.1)
--- NOTE | 2017-05-06 07:31 | PN ---
Date/Time of Note Date/Time of Note DATE: 05/06/17 TIME: 07:27 24 hour Interval Summary Date of progress note: 05/05/2017 The patient has now received the MRI of her lumbar spine last night without contrast that shows multilevel lumbar degenerative disease. There is no evidence of subluxation or fracture noted. The patient has severe central and lateral recess stenosis at L4-L5 as a result of facet hypertrophy and arthropathy, ligamentum hypertrophy and a broad disc herniation. There is mild or [id number] L3-L4 and L5-S1 lateral recess stenosis but no severe central canal stenosis. However, the radiology report indicates also moderate central canal stenosis at L3-L4 and L5-S1, but with my evaluation, I do not see this finding. The patient's symptoms are unchanged. She has not been able to ambulate secondary to diffuse bilateral lower extremity pain, numbness and weakness of the distal lower extremities bilaterally. The patient's symptoms are minimal when she is sitting or lying down in bed. Motor strength and sensory examination is unchanged compared to her initial consultation. I have again discussed the MRI findings with the patient in detail. The patient has severe L4-L5 central, lateral recess stenosis that can cause lumbar radiculopathy, specifically in the L5 distribution. Furthermore, the patient's lumbar stenosis can lead to signs and symptoms of neurogenic claudication leading to difficulty with prolonged standing and walking, symptoms that the patient has been experiencing. I have also again discussed the various treatment options for the patient including continued observation, physical therapy, interventional pain management including lumbar epidural steroid injections versus surgical intervention that would mainly be L4-L5 laminectomy, medial facetectomy and foraminotomies and possible microdiscectomy. The surgery can be done via minimally invasive techniques In most cases. The patient tells me that at this point she is interested in the procedure that provides the most long-term improvement of her symptoms and thereby she is most interested in the surgery. I have also discussed the risks and benefits of the above operation with the risks including bleeding, infection, weakness, numbness, bowel or bladder dysfunction, cerebrospinal fluid leak, failure of improvement of her symptoms, need for further surgeries including redo decompression or extension of the decompression and need for lumbar instrumented fusion as well as those risks associated with surgery and general anesthesia including deep venous thrombosis, pulmonary embolism, heart attack, stroke, pneumonia, and or . The patient fully understands the above discussion and wishes to proceed with the surgery as soon as possible. She has already been cleared from the medical as well as cardiac perspective for the operation. I have also discussed the above findings with the patient's admitting physician Dr. Fan. I have also asked whether the patient has discussed her condition with her family members whom she says are mainly her grandchildren with whom she lives. She tells me that yes she has discussed these findings with her family members. However, her grandchildren need to go work very early in the morning tomorrow and will not be able to joining her before the surgery. However she tells me that her brother may be able to come in early in the morning prior to the surgery. I have encouraged her to have her family come in and provided her support and in case there are any further questions, I'd be happy to answer any of these questions prior to surgery. We will try to accommodate her as best as we can. Physical Exam Vital Signs Date Time Temp Pulse Resp B/P Pulse Ox O2 Delivery O2 Flow Rate FiO2 05/06/17 06:47 97.8 76 18 134/74 98 Room Air Intake and Output 05/05/17 05/05/17 05/06/17 14:59 22:59 06:59 Intake Total 1480 ml 420 ml Output Total 800 ml Balance 1480 ml -380 ml VTE Prophylaxis VTE Prophylaxis Intervention: ambulation, SCD's VTE Confirmed-Overlap Tx Rcvd Pt Rcvd Overlap Therapy: No Reason for no Overlap Therapy: Contraindicated VTE Overlap Tx Contraindicated: sx procedure on lower extremity (preop) Lines/Catheters IV Catheter Type: Peripheral IV Jules in Place: No Results Result Diagram: 05/06/17 0502 05/06/17 0502 Results 24hrs Laboratory Tests Test 05/05/17 21:03 05/06/17 05:02 Sodium Level 138 140 Potassium Level 5.1 4.6 Chloride Level 96 L 104 Carbon Dioxide Level 30 28 Anion Gap 17 H 13 Blood Urea Nitrogen 20 16 Creatinine 0.85 0.77 Glucose Level 185 127 # Calcium Level 9.4 9.3 White Blood Count 8.7 Red Blood Count 3.94 L Hemoglobin 11.1 L Hematocrit 35.3 L Mean Corpuscular Volume 89.6 Mean Corpuscular Hemoglobin 28.2 L Mean Corpuscular Hemoglobin Concent 31.4 L Red Cell Distribution Width 14.1 Platelet Count 275 Mean Platelet Volume 10.3 Neutrophils % 59.2 Lymphocytes % 27.9 Monocytes % 8.7 Eosinophils % 3.4 Basophils % 0.3 Nucleated Red Blood Cells % 0.0 Neutrophils # (Manual) 5.2 Lymphocytes # 2.4 Monocytes # 0.8 Eosinophils # 0.3 Basophils # 0.0 Nucleated Red Blood Cells # 0.0 Prothrombin Time 13.3 Prothrombin Time Ratio 1.0 INR International Normalized Ratio 1.01 Activated Partial Thromboplast Time 28.5 Total Bilirubin 0.2 Direct Bilirubin 0.00 Indirect Bilirubin 0.2 Aspartate Amino Transf (AST/SGOT) 30 Alanine Aminotransferase (ALT/SGPT) 64 Alkaline Phosphatase 167 H Total Protein 6.9 Albumin 3.7 Globulin 3.20 Albumin/Globulin Ratio 1.15 Medications Medications Home Meds Reported Medications Acetaminophen* (Acetaminophen*) 500 MG Extra Strength Tablet, 500 MG PO Q4H Y for PAIN AND OR ELEVATED TEMP, TAB 05/03/17 Zolpidem Tartrate* (Zolpidem Tartrate*) 10 Mg Tablet, 10 MG PO QHS Y for INSOMNIA, #30 TAB 07/28/16 Benazepril Hcl* (Benazepril Hcl*) 20 Mg Tablet, 20 MG PO BID, #60 TAB 04/17/16 Discontinued Reported Medications Lorazepam* (Ativan*) 0.5 Mg Tablet, 0.5 MG PO HS Y for SLEEP, #30 TAB 07/28/16 Metformin* (Glucophage*) 500 Mg Tab, 500 MG PO WITH LUNCH DINNER, #60 TAB 04/17/16 Discontinued Scripts Pantoprazole (Protonix) 40 Mg Tabec, 40 MG PO DAILY, #30 TAB Prov:DIVYA FAN MD 04/22/16 Amlodipine Besylate* (Amlodipine Besylate*) 5 Mg Tablet, 5 MG PO DAILY, #90 TAB Prov:DIVYA FAN MD 04/22/16 ADRIANA FREEMAN MD May 06, 2017 07:31
[2017-05-06] MEDS ORDERED: GELATIN SIZE 100 SPONGE ONE (07:43)
[2017-05-06] MEDS ORDERED: POLYMYXIN/BACITRACIN 1L IRRIG ONE (07:43)
[2017-05-06] MEDS ORDERED: BUPIVACAINE 0.5% (SDV) 30 ML INJ ONE (07:43)
[2017-05-06] MEDS ORDERED: THROMBIN 5000 UNIT VIAL ONE (07:43)
--- NOTE | 2017-05-06 08:11 | HPN ---
Date/Time of Note Date/Time of Note DATE: 05/06/17 TIME: 08:10 Interval H&P Admission Note Pt. seen H&P reviewed: No system changes ADRIANA FREEMAN MD May 06, 2017 08:11
[2017-05-06] MEDS ORDERED: ROCURONIUM 50 MG INJ ONE (08:31)
[2017-05-06] MEDS ORDERED: LIDOCAINE 2% (SDV) 5 ML INJ ONE (08:31)
[2017-05-06] MEDS ORDERED: MIDAZOLAM 1 MG/ML 2 ML INJ ONE (08:31)
[2017-05-06] MEDS ORDERED: FENTAnyl 50 MCG/ML VIAL ONE (08:31)
[2017-05-06] MEDS ORDERED: SUCCINYLCHOLINE CHLORIDE 100 MG/5 ML SYG IV ONE (08:31)
[2017-05-06] MEDS ORDERED: PROPOFOL 20 ML ONE (08:31)
[2017-05-06] MEDS ORDERED: CEFAZOLIN 1 GM INJ ONE (08:54)
[2017-05-06] MEDS: BENAZEPRIL 20 MG TAB PO SCH ×2 (09:00→20:25)
[2017-05-06] MEDS: AMLODIPINE 5 MG TAB PO SCH (09:00)
[2017-05-06] MEDS: PANTOPRAZOLE (EC) 40 MG TAB PO SCH (09:00)
[2017-05-06] MEDS ORDERED: HEMOSTATIC MATRIX SYG ZFS ONE (09:18)
[2017-05-06] MEDS ORDERED: POLYMYXIN/BACITRACIN 1L IRRIG IRR ONE (09:18)
[2017-05-06] MEDS ORDERED: GELATIN SIZE 100 SPONGE TOP ONE (09:18)
[2017-05-06] MEDS ORDERED: THROMBIN 20000 UNIT ZFS ONE ×2 (09:18)
[2017-05-06] MEDS ORDERED: METOCLOPRAMIDE 10 MG INJ ONE (09:31)
[2017-05-06] MEDS ORDERED: ONDANSETRON 4 MG INJ ONE (09:31)
[2017-05-06] MEDS ORDERED: FAMOTIDINE 20 MG INJ ONE (09:31)
[2017-05-06] MEDS ORDERED: HYDROmorphONE 2 MG/ML SYG ONE (09:54)
[2017-05-06] MEDS ORDERED: THROMBIN(HUM PLAS)/FIBRINOG/CA 5 ML VIAL TOP ONE (10:52)
[2017-05-06] MEDS ORDERED: GLYCOPYRROLATE 0.4 MG INJ ONE (11:21)
[2017-05-06] MEDS ORDERED: BUPIVACAINE 0.5% (SDV) 30 ML INJ INJ ONE (11:21)
[2017-05-06] MEDS ORDERED: NEOSTIGMINE 3 MG/3 ML SYRINGE ONE (11:21)
--- NOTE | 2017-05-06 11:52 | SIPON ---
Date/Time of Note Date/Time of Note DATE: 05/06/17 TIME: 11:50 Operative Report Preoperative Diagnosis L4-5 central and lateral recess stenosis Postoperative Diagnosis Same as above Operation/Procedure Performed Minimally invasive L4 laminectomy, L4-5medial facetectomy/foraminotomy, microdiscectomy Surgeon: ADRIANA FREEMAN MD Anesthesia Type: general Estimated Blood Loss: 10 - 50 ml's Transfusion Required: no Specimen: none Grafts/Implants: none Complications: no ADRIANA FREEMAN MD May 06, 2017 11:52
[2017-05-06] MEDS ORDERED: HYDROmorphONE (0.2 MG/ML) 10ML SYG IV PRN (12:00)
[2017-05-06] MEDS ORDERED: LABETALOL HCL 20MG INJ IV PRN (12:00)
[2017-05-06] MEDS ORDERED: CYCLOBENZAPRINE 10 MG TAB PO PRN (12:00)
[2017-05-06] MEDS ORDERED: ONDANSETRON 4 MG INJ IV PRN (12:00)
[2017-05-06] MEDS ORDERED: FENTAnyl 50 MCG/ML VIAL IV PRN (12:00)
[2017-05-06] MEDS ORDERED: DIPHENHYDRAMINE 50 MG INJ IV PRN (12:00)
[2017-05-06] MEDS ORDERED: PROCHLORPERAZINE 10 MG INJ IV PRN (12:00)
[2017-05-06] MEDS ORDERED: hydrALAzine 20 MG INJ IV PRN (12:00)
[2017-05-06] MEDS ORDERED: NALOXONE (0.4 MG/ML) INJ IV PRN (12:00)
--- NOTE | 2017-05-06 12:33 | CONS ---
Date/Time of Note Date/Time of Note DATE: 05/06/17 TIME: 12:31 Assessment/Plan Assessment/Plan Chief Complaint/Hosp Course IMPRESSION: 1. Preoperative evaluation prior to possible lumbosacral spinal surgery for spinal stenosis.-negative trop x 2/no changes on serial ecg/ NL EF by echo with no sig valve abnl. OK for surgery at moderate risk on current medications without further noninvasive evaluation 2. Hypertension, under reasonable control on current medications. 3. Systolic murmur, short. 4. Spinal stenosis. 5. Lower extremity weakness. 6. Diet-controlled diabetes mellitus. Recc: -To OR today -Resume norvasc/benazepril post-op -check post-op ecg -Pain control Problems: Consultation Date/Type/Reason Admit Date/Time May 03, 2017 at 21:24 Initial Consult Date 05/04/2017 Type of Consultation: cardiology Reason for Consultation preop Referring Provider: DIVYA FAN MD Exam/Review of Systems Vital Signs Vitals Vital Signs Date Time Temp Pulse Resp B/P Pulse Ox O2 Delivery O2 Flow Rate FiO2 05/06/17 12:15 102 16 136/59 97 Room Air 05/06/17 11:50 98.3 Intake and Output 05/05/17 05/05/17 05/06/17 15:00 23:00 07:00 Intake Total 1480 ml 420 ml Output Total 800 ml Balance 1480 ml -380 ml Exam Review of Systems: CONSTITUTIONAL: No fevers, chills. PULMONARY: No sob CARDIOVASCULAR: No chest pain/palpitations GASTROINTESTINAL: No nausea/vomiting. GENITOURINARY: No hematuria/dysuria. MUSCULOSKELETAL: No myagias/arthalgias. PSYCHIATRIC: The patient denies depression. NEUROLOGIC: No weakness Constitutional: alert, oriented Psych: no complaints Head: normocephalic ENMT: mucosa pink and moist Neck: jvd (8 cm water), supple Respiratory: clear to auscultation Cardiovascular: regular rate and rhythm Gastrointestinal: non-tender, soft Musculoskeletal: muscle tone (normal) Extremities: edema (none) Neurological: other (No focal deficits) Results Result Diagram: 05/06/17 0502 05/06/17 0502 Results 24 hrs Laboratory Tests Test 05/05/17 21:03 05/06/17 05:02 05/06/17 11:50 Sodium Level 138 140 Potassium Level 5.1 4.6 Chloride Level 96 L 104 Carbon Dioxide Level 30 28 Anion Gap 17 H 13 Blood Urea Nitrogen 20 16 Creatinine 0.85 0.77 Glucose Level 185 127 # Calcium Level 9.4 9.3 White Blood Count 8.7 Red Blood Count 3.94 L Hemoglobin 11.1 L Hematocrit 35.3 L Mean Corpuscular Volume 89.6 Mean Corpuscular Hemoglobin 28.2 L Mean Corpuscular Hemoglobin Concent 31.4 L Red Cell Distribution Width 14.1 Platelet Count 275 Mean Platelet Volume 10.3 Neutrophils % 59.2 Lymphocytes % 27.9 Monocytes % 8.7 Eosinophils % 3.4 Basophils % 0.3 Nucleated Red Blood Cells % 0.0 Neutrophils # (Manual) 5.2 Lymphocytes # 2.4 Monocytes # 0.8 Eosinophils # 0.3 Basophils # 0.0 Nucleated Red Blood Cells # 0.0 Prothrombin Time 13.3 Prothrombin Time Ratio 1.0 INR International Normalized Ratio 1.01 Activated Partial Thromboplast Time 28.5 Total Bilirubin 0.2 Direct Bilirubin 0.00 Indirect Bilirubin 0.2 Aspartate Amino Transf (AST/SGOT) 30 Alanine Aminotransferase (ALT/SGPT) 64 Alkaline Phosphatase 167 H Total Protein 6.9 Albumin 3.7 Globulin 3.20 Albumin/Globulin Ratio 1.15 Bedside Glucose 174 Medications Medications Current Medications Amlodipine Besylate (Norvasc) 5 mg DAILY PO Last administered on 05/05/17 08: 34; Admin Dose 5 MG; Start 05/04/17 at 09:00 Benazepril HCl (Lotensin) 20 mg BID PO Last administered on 05/05/17 21:03; Admin Dose 20 MG; Start 05/04/17 at 09:00 Pantoprazole (Protonix Tab) 40 mg DAILY PO Last administered on 05/05/17 08:33 ; Admin Dose 40 MG; Start 05/04/17 at 09:00 Zolpidem Tartrate (Ambien) 10 mg QHS PRN PO INSOMNIA Last administered on 21:07; Admin Dose 10 MG; Start 05/03/17 at 23:00 Ondansetron HCl (Zofran Inj) 4 mg Q4H PRN IV NAUSEA AND/OR VOMITING Last administered on 05/04/17 22:42; Admin Dose 4 MG; Start 05/03/17 at 23:00 Acetaminophen (Tylenol Tab) 650 mg Q6H PRN PO PAIN LEVEL 1-3 OR FEVER; Start at 23:00 Docusate Sodium (Colace) 100 mg Q12H PRN PO CONSTIPATION; Start 05/03/17 at 23: 00 Magnesium Hydroxide (Milk Of Mag) 30 ml DAILY PRN PO CONSTIPATION Last administered on 05/05/17 16:07; Admin Dose 30 ML; Start 05/03/17 at 23:00 Bisacodyl (Dulcolax) 5 mg DAILY PRN PO CONSTIPATION; Start 05/03/17 at 23:00 Bisacodyl (Dulcolax Supp) 10 mg DAILY PRN [place] CONSTIPATION; Start 05/03/17 at 23 :00 Sodium Biphosphate/ Sodium Phosphate (Fleet Enema) 133 ml DAILY PRN [place] CONSTIPATION; Start 05/03/17 at 23:00 Miscellaneous Information 1 ea NOTE XX ; Start 05/03/17 at 23:00 Glucose (Glutose) 15 gm Q15M PRN PO DECREASED GLUCOSE; Start 05/03/17 at 23:00 Glucose (Glutose) 22.5 gm Q15M PRN PO DECREASED GLUCOSE; Start 05/03/17 at 23: 00 Dextrose (D50w Syringe) 25 ml Q15M PRN IV DECREASED GLUCOSE; Start 05/03/17 at 23:00 Dextrose (D50w Syringe) 50 ml Q15M PRN IV DECREASED GLUCOSE; Start 05/03/17 at 23:00 Glucagon (Glucagen) 1 mg Q15M PRN IM DECREASED GLUCOSE; Start 05/03/17 at 23:00 Glucose 15 gm 15 gm Q15M PRN BUCCAL DECREASED GLUCOSE; Start 05/03/17 at 23:00 Dextrose/Sodium Chloride (D5-1/2ns) 1,000 ml @ 40 mls/hr Q24H IV Last administered on 05/06/17 04:31; Admin Dose 40 MLS/HR; Start 05/05/17 at 00:30 Acetaminophen/ Hydrocodone Bitart ([place] (10/325)) 2 tab Q6H PO ; Start 05/06/17 at 12:00 Hydromorphone HCl 0.2 mg 0.2 mg Q1H PRN IV BREAKTHROUGH PAIN; Start 05/06/17 at 12:00 Cefazolin Sodium (Ancef 1 Gm/50 ml (Pmx)) 50 ml @ 100 mls/hr Q8 IVPB ; Start at 14:00; Stop 05/07/17 at 06:29 Cyclobenzaprine HCl (Flexeril) 5 mg TID PRN PO MUSCLE SPASMS; Start 05/06/17 at 12:00 Naloxone HCl (Narcan) 0.2 mg Q2M PRN IV RR 8 BREATHS/MIN OR LESS; Start at 12:00 MARQUISE ESTRADA May 06, 2017 12:33
[2017-05-06] MEDS: DEXTROSE 5%-0.45% NACL 500 ML IV SCH ×2 (13:00→18:28)
[2017-05-06] MEDS: CEFAZOLIN 1 GM/50 ML (PMX) 50 ML IVPB SCH ×2 (13:25→21:31)
[2017-05-06] MEDS: HYDROCODONE/APAP (10/325) TAB PO SCH ×2 (13:25→17:26)
--- NOTE | 2017-05-06 13:58 | RADRPT ---
PROCEDURE: Intraoperative imaging of the lumbar spine with fluoroscopy. CLINICAL INDICATION: Back pain. Intraoperative. TECHNIQUE: 3 images of the lumbar spine were obtained in the operating room with an image intensif ier. No radiologist was in attendance. Fluoroscopy time is 3.77. COMPARISON: No prior study is available for comparison. FINDINGS: For the purposes of this report, the last apparent true disc level is considered to be L5-S1. Based on this, the posterior surgical instrument is present overlying the L4-5 level. IMPRESSION: 1. Intraoperative imaging of the lumbar spine. RPTAT: QQ .Mert Avery MD, MD Date Time Electronically viewed and signed by .Mert Avery MD, on 05/06/2017 13:58 .R/
--- NOTE | 2017-05-06 16:06 | PN ---
Date/Time of Note Date/Time of Note DATE: 05/06/17 TIME: 16:05 Assessment/Plan VTE Prophylaxis VTE Prophylaxis Intervention: SCD's Lines/Catheters IV Catheter Type (from Nrsg): Peripheral IV Urinary Cath still in place: No Assessment/Plan Assessment/Plan 1/ Severe central spinal canal stenosis causing Acute on chronic intractable pain,acute lumbar radiculopathy 2. Severe debility due to back pain and Inability to walk safely 3. HTN 4. HL 5. Borderline DM- not on any meds 6. h/o Renal cell CA s/p Right nephrectomy 7. L4-L5, there is severe appearing central canal stenosis, related to 6 mm disk bulge, moderate facet hypertrophy, and ligamentum flavum buckling. Moderate right and mild-moderate left foraminal stenosis. Plan: S/p Neurosurgery consult, Dr.Sean Frey saw pt, MRI LS spine done, Plan for laminectomy today pain control with tylenol, norco and IV morhpine- pain management has been consulted for better pain control BP stable Physical therapy evaluation and treatment pt will need SNF placement- [facility] in progress Subjective 24 Hr Interval Summary Free Text/Dictation plan for laminectomy today Exam/Review of Systems Vital Signs Vitals Vital Signs Date Time Temp Pulse Resp B/P Pulse Ox O2 Delivery O2 Flow Rate FiO2 05/06/17 14:18 98.0 72 18 123/58 93 05/06/17 12:25 Room Air Intake and Output 05/05/17 05/05/17 05/06/17 15:00 23:00 07:00 Intake Total 1480 ml 420 ml Output Total 800 ml Balance 1480 ml -380 ml Exam Constitutional: alert Psych: no complaints Head: normocephalic Eyes: nl conjunctiva ENMT: nl external ears & nose Neck: non-tender, supple Respiratory: clear to auscultation, normal air movement Cardiovascular: nl pulses, regular rate and rhythm Gastrointestinal: non-tender, soft Musculoskeletal: joint tenderness, muscle weakness, nl extremities to inspection, other (spine TTP ), range of motion (limited range of motion due to severe pain ) Extremities: calf tenderness, normal pulses Neurological: [employer] II-XII intact Results Result Diagram: 05/06/17 0502 05/06/17 0502 Results 24 hrs Laboratory Tests Test 05/05/17 21:03 05/06/17 05:02 05/06/17 11:50 Sodium Level 138 140 Potassium Level 5.1 4.6 Chloride Level 96 L 104 Carbon Dioxide Level 30 28 Anion Gap 17 H 13 Blood Urea Nitrogen 20 16 Creatinine 0.85 0.77 Glucose Level 185 127 # Calcium Level 9.4 9.3 White Blood Count 8.7 Red Blood Count 3.94 L Hemoglobin 11.1 L Hematocrit 35.3 L Mean Corpuscular Volume 89.6 Mean Corpuscular Hemoglobin 28.2 L Mean Corpuscular Hemoglobin Concent 31.4 L Red Cell Distribution Width 14.1 Platelet Count 275 Mean Platelet Volume 10.3 Neutrophils % 59.2 Lymphocytes % 27.9 Monocytes % 8.7 Eosinophils % 3.4 Basophils % 0.3 Nucleated Red Blood Cells % 0.0 Neutrophils # (Manual) 5.2 Lymphocytes # 2.4 Monocytes # 0.8 Eosinophils # 0.3 Basophils # 0.0 Nucleated Red Blood Cells # 0.0 Prothrombin Time 13.3 Prothrombin Time Ratio 1.0 INR International Normalized Ratio 1.01 Activated Partial Thromboplast Time 28.5 Total Bilirubin 0.2 Direct Bilirubin 0.00 Indirect Bilirubin 0.2 Aspartate Amino Transf (AST/SGOT) 30 Alanine Aminotransferase (ALT/SGPT) 64 Alkaline Phosphatase 167 H Total Protein 6.9 Albumin 3.7 Globulin 3.20 Albumin/Globulin Ratio 1.15 Bedside Glucose 174 Medications Medications Current Medications Amlodipine Besylate (Norvasc) 5 mg DAILY PO Last administered on 05/05/17 08: 34; Admin Dose 5 MG; Start 05/04/17 at 09:00 Benazepril HCl (Lotensin) 20 mg BID PO Last administered on 05/05/17 21:03; Admin Dose 20 MG; Start 05/04/17 at 09:00 Pantoprazole (Protonix Tab) 40 mg DAILY PO Last administered on 05/05/17 08:33 ; Admin Dose 40 MG; Start 05/04/17 at 09:00 Zolpidem Tartrate (Ambien) 10 mg QHS PRN PO INSOMNIA Last administered on 21:07; Admin Dose 10 MG; Start 05/03/17 at 23:00 Ondansetron HCl (Zofran Inj) 4 mg Q4H PRN IV NAUSEA AND/OR VOMITING Last administered on 05/04/17 22:42; Admin Dose 4 MG; Start 05/03/17 at 23:00 Acetaminophen (Tylenol Tab) 650 mg Q6H PRN PO PAIN LEVEL 1-3 OR FEVER; Start at 23:00 Docusate Sodium (Colace) 100 mg Q12H PRN PO CONSTIPATION; Start 05/03/17 at 23: 00 Magnesium Hydroxide (Milk Of Mag) 30 ml DAILY PRN PO CONSTIPATION Last administered on 05/05/17 16:07; Admin Dose 30 ML; Start 05/03/17 at 23:00 Bisacodyl (Dulcolax) 5 mg DAILY PRN PO CONSTIPATION; Start 05/03/17 at 23:00 Bisacodyl (Dulcolax Supp) 10 mg DAILY PRN [place] CONSTIPATION; Start 05/03/17 at 23 :00 Sodium Biphosphate/ Sodium Phosphate (Fleet Enema) 133 ml DAILY PRN [place] CONSTIPATION; Start 05/03/17 at 23:00 Miscellaneous Information 1 ea NOTE XX ; Start 05/03/17 at 23:00 Glucose (Glutose) 15 gm Q15M PRN PO DECREASED GLUCOSE; Start 05/03/17 at 23:00 Glucose (Glutose) 22.5 gm Q15M PRN PO DECREASED GLUCOSE; Start 05/03/17 at 23: 00 Dextrose (D50w Syringe) 25 ml Q15M PRN IV DECREASED GLUCOSE; Start 05/03/17 at 23:00 Dextrose (D50w Syringe) 50 ml Q15M PRN IV DECREASED GLUCOSE; Start 05/03/17 at 23:00 Glucagon (Glucagen) 1 mg Q15M PRN IM DECREASED GLUCOSE; Start 05/03/17 at 23:00 Glucose (Glutose) 15 gm Q15M PRN BUCCAL DECREASED GLUCOSE; Start 05/03/17 at 23 :00 Acetaminophen/ Hydrocodone Bitart ([place] (10/325)) 2 tab Q6H PO Last administered on 05/06/17 13:25; Admin Dose 2 TAB; Start 05/06/17 at 12:00 Hydromorphone HCl 0.2 mg 0.2 mg Q1H PRN IV BREAKTHROUGH PAIN; Start 05/06/17 at 12:00 Cefazolin Sodium (Ancef 1 Gm/50 ml (Pmx)) 50 ml @ 100 mls/hr Q8 IVPB Last administered on 05/06/17t 13:25; Admin Dose 100 MLS/HR; Start 05/06/17 at 14:00; Stop 05/07/17 at 06:29 Cyclobenzaprine HCl (Flexeril) 5 mg TID PRN PO MUSCLE SPASMS; Start 05/06/17 at 12:00 Naloxone HCl 0.2 mg 0.2 mg Q2M PRN IV RR 8 BREATHS/MIN OR LESS; Start 05/06/17 at 12:00 Dextrose/Sodium Chloride (D5-1/2ns) 500 ml @ 40 mls/hr [id number] IV ; Start at 13:00 DIVYA FAN MD May 06, 2017 16:06
[2017-05-06] MEDS: HYDROmorphONE 1 MG/ML SYG IV PRN (20:25)
[2017-05-06] MEDS: ZOLPIDEM 5 MG TAB PO PRN (21:31)
[2017-05-07] MEDS: HYDROCODONE/APAP (10/325) TAB PO SCH ×2 (04:30)
[2017-05-07 04:40] VITALS: BP 136/68; RESP 18
[2017-05-07] MEDS: CEFAZOLIN 1 GM/50 ML (PMX) 50 ML IVPB SCH (05:59)
[2017-05-07] MEDS: DEXTROSE 5%-0.45% NACL 500 ML IV SCH (06:08)
[2017-05-07 07:00] VITALS: BP 162/74; RESP 20
[2017-05-07] MEDS: HYDROmorphONE 1 MG/ML SYG IV PRN ×4 (07:48→13:20)
[2017-05-07] MEDS: BENAZEPRIL 20 MG TAB PO SCH ×2 (07:50→20:58)
[2017-05-07] MEDS: AMLODIPINE 5 MG TAB PO SCH (07:50)
[2017-05-07] MEDS: PANTOPRAZOLE (EC) 40 MG TAB PO SCH (10:00)
--- NOTE | 2017-05-07 13:29 | CONS ---
Date/Time of Note Date/Time of Note DATE: 05/07/17 TIME: 13:23 Assessment/Plan Assessment/Plan Additional Assessment/Plan Patient status post bar spine stabilization postop 2 days. She is somnolent but still asked for pain control medications primarily intravenously according to nurses. I will switch her from her current pain control medications to tramadol 50 mg every 6 as needed encourage her to continue with physical therapy. I had a long conversation with her told her that we will not escalate her current pain control medications. Consultation Date/Type/Reason Admit Date/Time May 03, 2017 at 21:24 Type of Consultation: Pain management Hx of Present Illness Chart reviewed patient examined she was status post lumbosacral spine surgical procedure done 2 days prior to this dictation. She has continued to have prolonged pain and ecstasy patient and assist with her current pain control medication. Right now she is on a combination of [place] as needed and IV Dilaudid 0.2 mg every 4 as needed pain. Once the nurses says she has been asked with IV Dilaudid frequently. Morning she is taking it 3 times when I examined her it was difficult to wake her. Patient said her pain is moderately uncomfortable at 4/10 after she takes pain control medication she falls asleep states that she was not taking any pain control medications prior to his hospitalization he denies any other side effects associated with current pain medication. Physical functioning with physical therapy not impaired. Mood is good sleeping patterns are good overall function has improved denies nausea vomiting itching mental confusion mental cloudiness dizziness diplopia disorientation, patient is very drowsy. Patient has been asked for frequent dosings of current medication however when I asked her her pain is in her low C- spine not in the lumbosacral spine she states that pain is controlled she denies any lumbosacral spine pain at this time. This was a gnawing type of discomfort not associated with trauma in the past there is no past medical history of abuse of pain control medication she does not drink. Denies any oversedation with her medications at home. Eyes: no complaints ENT: no complaints Respiratory: no complaints Cardiovascular: no complaints Gastrointestinal: no complaints Musculoskeletal: back pain, bone/joint pain, neck pain, restricted range of motion Skin: no complaints Neurologic: no complaints Lymphatic: no complaints Psychological: no complaints Immunologic: no complaints Past Medical History Medical History: high cholesterol, hypertension, other (depression, h/o RCC s/ p right nephrectomy ) Past Surgical History Past Surgical Hx: cholecystectomy, other (nephrectomy, gastric bypass surgery, h/o Right nephrectomy for renal cell CA ) Social History Alcohol Use: none Smoking Status: Never smoker Drug Use: none Exam/Review of Systems Vital Signs Vitals Vital Signs Date Time Temp Pulse Resp B/P Pulse Ox O2 Delivery O2 Flow Rate FiO2 05/07/17 07:00 98.6 92 20 162/74 94 05/06/17 15:30 Room Air Intake and Output 05/06/17 05/06/17 05/07/17 15:00 23:00 07:00 Intake Total 850 ml 50 ml 870 ml Output Total 10 ml 750 ml Balance 840 ml 50 ml 120 ml Exam Constitutional: alert, oriented, other (Only falls asleep during questioning), well developed Eyes: EOMI, PERRL, nl conjunctiva, nl lids, nl sclera, No fundi, disc, No icteric, No other ENMT: nl external ears & nose, nl lips & teeth, nl nasal mucosa & septum, No intubated, No mucosa pink and moist, No other, No tympanic membranes Neck: non-tender, supple, No bruits, No jvd, No masses, No nuchal rigidity, No other, No thyromegaly Cardiovascular: nl pulses, regular rate and rhythm, No S3, No S4, No bruits, No diastolic murmur, No edema, No gallop, No irregular rhythm, No jugular venous distention (JVD), No murmurs/extra sounds, No other, No rub, No systolic murmur Neurological: lethargic, No ACCOUNTS RECEIVABLE ANALYST II-XII intact, No DTR's symmetric, No confused, No focal weakness, No nl mental status, No nl speech, No nl strength, No numbness, No other, No reflexes, No unresponsive Results Result Diagram: 05/06/17 0502 05/06/17 0502 Medications Medications Current Medications Amlodipine Besylate (Norvasc) 5 mg DAILY PO Last administered on 05/07/17 07:50 ; Admin Dose 5 MG; Start 05/04/17 at 09:00 Benazepril HCl (Lotensin) 20 mg BID PO Last administered on 05/07/17 07:50; Admin Dose 20 MG; Start 05/04/17 at 09:00 Pantoprazole (Protonix Tab) 40 mg DAILY PO Last administered on 05/07/17 10:00 ; Admin Dose 40 MG; Start 05/04/17 at 09:00 Zolpidem Tartrate (Ambien) 10 mg QHS PRN PO INSOMNIA Last administered on 21:31; Admin Dose 10 MG; Start 05/03/17 at 23:00 Ondansetron HCl (Zofran Inj) 4 mg Q4H PRN IV NAUSEA AND/OR VOMITING Last administered on 05/04/17 22:42; Admin Dose 4 MG; Start 05/03/17 at 23:00 Acetaminophen (Tylenol Tab) 650 mg Q6H PRN PO PAIN LEVEL 1-3 OR FEVER; Start at 23:00 Docusate Sodium (Colace) 100 mg Q12H PRN PO CONSTIPATION; Start 05/03/17 at 23: 00 Magnesium Hydroxide (Milk Of Mag) 30 ml DAILY PRN PO CONSTIPATION Last administered on 05/05/17 16:07; Admin Dose 30 ML; Start 05/03/17 at 23:00 Bisacodyl (Dulcolax) 5 mg DAILY PRN PO CONSTIPATION; Start 05/03/17 at 23:00 Bisacodyl (Dulcolax Supp) 10 mg DAILY PRN [place] CONSTIPATION; Start 05/03/17 at 23 :00 Sodium Biphosphate/ Sodium Phosphate (Fleet Enema) 133 ml DAILY PRN [place] CONSTIPATION; Start 05/03/17 at 23:00 Miscellaneous Information 1 ea NOTE XX ; Start 05/03/17 at 23:00 Glucose (Glutose) 15 gm Q15M PRN PO DECREASED GLUCOSE; Start 05/03/17 at 23:00 Glucose (Glutose) 22.5 gm Q15M PRN PO DECREASED GLUCOSE; Start 05/03/17 at 23: 00 Dextrose (D50w Syringe) 25 ml Q15M PRN IV DECREASED GLUCOSE; Start 05/03/17 at 23:00 Dextrose (D50w Syringe) 50 ml Q15M PRN IV DECREASED GLUCOSE; Start 05/03/17 at 23:00 Glucagon (Glucagen) 1 mg Q15M PRN IM DECREASED GLUCOSE; Start 05/03/17 at 23:00 Glucose (Glutose) 15 gm Q15M PRN BUCCAL DECREASED GLUCOSE; Start 05/03/17 at 23 :00 Acetaminophen/ Hydrocodone Bitart ([place] (10/325)) 2 tab Q6H PO Last administered on 05/07/17 04:30; Admin Dose 2 TAB; Start 05/06/17 at 12:00 Hydromorphone HCl (Dilaudid) 0.2 mg Q1H PRN IV BREAKTHROUGH PAIN Last administered on 05/07/17 11:38; Admin Dose 0.2 MG; Start 05/06/17 at 12:00 Cyclobenzaprine HCl (Flexeril) 5 mg TID PRN PO MUSCLE SPASMS Last administered on 05/07/17 11:37; Admin Dose 5 MG; Start 05/06/17 at 12:00 Naloxone HCl 0.2 mg 0.2 mg Q2M PRN IV RR 8 BREATHS/MIN OR LESS; Start 05/06/17 at 12:00 Dextrose/Sodium Chloride (D5-1/2ns) 500 ml @ 40 mls/hr [id number] IV Last administered on 05/07/17 06:08; Admin Dose 40 MLS/HR; Start 05/06/17 at 13:00 MADHU TY May 07, 2017 13:29
[2017-05-07 14:00] VITALS: BP 130/60; RESP 20
--- NOTE | 2017-05-07 14:50 | PN ---
Date/Time of Note Date/Time of Note DATE: 05/07/17 TIME: 14:20 Assessment/Plan VTE Prophylaxis VTE Prophylaxis Intervention: other Lines/Catheters IV Catheter Type (from Nrsg): Peripheral IV Urinary Cath still in place: No Assessment/Plan Assessment/Plan 1. Severe central spinal canal stenosis causing Acute on chronic intractable pain,acute lumbar radiculopathy - sp laminectomy 05/06/2017 - Per neuro surgery - cont pt - pain management 2. Severe debility due to back pain and Inability to walk safely 3. HTN 4. Hyperlipemias 5. Borderline DM- not on any meds 6. h/o Renal cell CA s/p Right nephrectomy 7. L4-L5, there is severe appearing central canal stenosis, related to 6 mm disk bulge, moderate facet hypertrophy, and ligamentum flavum buckling. Moderate right and mild-moderate left foraminal stenosis. Plan: -S/p Neurosurgery consult, Dr.Sean Frey saw pt, MRI LS spine done, -pain control with Tylenol, [place] and IV Dilaudid- pain management has been consulted for better pain control -BP stable -Physical therapy evaluation and treatment -pt will need SNF placement- [facility] progress - Dw Dr Eva Aguilar/staff Subjective 24 Hr Interval Summary Free Text/Dictation afebrile, gets PT- sitting up in bed.. c/o back pain while move. dw staff Eyes: no complaints ENT: no complaints Respiratory: no complaints Cardiovascular: no complaints Gastrointestinal: no complaints Genitourinary: no complaints Musculoskeletal: back pain Skin: no complaints Neurologic: other (BACK PAIN) Exam/Review of Systems Vital Signs Vitals Vital Signs Date Time Temp Pulse Resp B/P Pulse Ox O2 Delivery O2 Flow Rate FiO2 05/07/17 14:00 97.9 95 20 130/60 96 05/06/17 15:30 Room Air Intake and Output 05/06/17 05/06/17 05/07/17 15:00 23:00 07:00 Intake Total 850 ml 50 ml 870 ml Output Total 10 ml 750 ml Balance 840 ml 50 ml 120 ml Exam Constitutional: alert, oriented, well developed Respiratory: clear to auscultation, normal air movement Cardiovascular: nl pulses, regular rate and rhythm Gastrointestinal: non-tender, soft Musculoskeletal: nl extremities to inspection Extremities: normal pulses Neurological: nl mental status, nl speech Skin: other (sp backsurgery-site DDI) Results Result Diagram: 05/06/17 0502 05/06/17 0502 Medications Medications Current Medications Amlodipine Besylate (Norvasc) 5 mg DAILY PO Last administered on 05/07/17 07:50 ; Admin Dose 5 MG; Start 05/04/17 at 09:00 Benazepril HCl (Lotensin) 20 mg BID PO Last administered on 05/07/17 07:50; Admin Dose 20 MG; Start 05/04/17 at 09:00 Pantoprazole (Protonix Tab) 40 mg DAILY PO Last administered on 05/07/17 10:00 ; Admin Dose 40 MG; Start 05/04/17 at 09:00 Ondansetron HCl (Zofran Inj) 4 mg Q4H PRN IV NAUSEA AND/OR VOMITING Last administered on 05/04/17 22:42; Admin Dose 4 MG; Start 05/03/17 at 23:00 Acetaminophen (Tylenol Tab) 650 mg Q6H PRN PO PAIN LEVEL 1-3 OR FEVER; Start at 23:00 Docusate Sodium (Colace) 100 mg Q12H PRN PO CONSTIPATION; Start 05/03/17 at 23: 00 Magnesium Hydroxide (Milk Of Mag) 30 ml DAILY PRN PO CONSTIPATION Last administered on 05/05/17 16:07; Admin Dose 30 ML; Start 05/03/17 at 23:00 Bisacodyl (Dulcolax) 5 mg DAILY PRN PO CONSTIPATION; Start 05/03/17 at 23:00 Bisacodyl (Dulcolax Supp) 10 mg DAILY PRN [place] CONSTIPATION; Start 05/03/17 at 23 :00 Sodium Biphosphate/ Sodium Phosphate (Fleet Enema) 133 ml DAILY PRN [place] CONSTIPATION; Start 05/03/17 at 23:00 Miscellaneous Information 1 ea NOTE XX ; Start 05/03/17 at 23:00 Glucose (Glutose) 15 gm Q15M PRN PO DECREASED GLUCOSE; Start 05/03/17 at 23:00 Glucose (Glutose) 22.5 gm Q15M PRN PO DECREASED GLUCOSE; Start 05/03/17 at 23: 00 Dextrose (D50w Syringe) 25 ml Q15M PRN IV DECREASED GLUCOSE; Start 05/03/17 at 23:00 Dextrose (D50w Syringe) 50 ml Q15M PRN IV DECREASED GLUCOSE; Start 05/03/17 at 23:00 Glucagon (Glucagen) 1 mg Q15M PRN IM DECREASED GLUCOSE; Start 05/03/17 at 23:00 Glucose (Glutose) 15 gm Q15M PRN BUCCAL DECREASED GLUCOSE; Start 05/03/17 at 23 :00 Naloxone HCl 0.2 mg 0.2 mg Q2M PRN IV RR 8 BREATHS/MIN OR LESS; Start 05/06/17 at 12:00 Dextrose/Sodium Chloride (D5-1/2ns) 500 ml @ 40 mls/hr [id number] IV Last administered on 05/07/17 06:08; Admin Dose 40 MLS/HR; Start 05/06/17 at 13:00 Tramadol HCl (Ultram) 50 mg Q6H PRN PO PAIN LEVEL 1-3; Start 05/07/17 at 13:30 PATRICA LOPEZ May 07, 2017 14:30
--- NOTE | 2017-05-07 15:17 | OPR ---
Date/Time of Note Date/Time of Note DATE: 05/06/17 TIME: 12:30 Operative Report Free Text/Dictation Date of operation: 05/06/2017 Operating surgeon: Adriana Freeman M.D. Preoperative diagnosis: L4-L5 central lateral recess stenosis Postoperative diagnosis: Same as above Indication for procedure: Please see the inpatient consultation note for a full set of indications. The patient was able to finally give me the phone number for her daughter Letitia who lives in [place]. I was able to call the patient' s daughter just prior to the operation and went over her mother's signs and symptoms and the MRI findings. I also explained the various treatment options for the patient including continued observation, physical therapy, interventional pain management (e.g. lumbar epidural steroid injections) versus surgical decompression. The patient's daughter indicated that she fully understood the discussion as well as the risks and benefits of the operation and just like her mother she was also in agreement to proceed with the surgery. Operation performed: 1. Minimally invasive decompressive L4 laminectomy 2. Minimally invasive bilateral L4-L5 medial facetectomy and foraminotomy 3. Minimally invasive left L4-L5 microdiscectomy 4. Intraoperative fluoroscopy with professional interpretation 5. Intraoperative microscope with microdissection 6. Intraoperative neurophysiologic monitoring Description of operative procedure: The patient was brought to the operating room. After general anesthesia was obtained she was placed prone on top of the [place]ma[place] frame. Her arms were then abductor less than [address] superman position. The [place]ma[place] frame was slightly raised. All pressure points were noted and padded appropriately. The midline lumbar spine was marked. A vertical paraspinal line approximately 1.5 cm to the left of midline was marked. After the skin was prepped and draped under standard sterile fashion, the spinal needle was inserted along the left paraspinal lumbar line and a left L4 hemilamina, L4-L5 medial facet junction parallel to the L4-L5 disc space was located under direct lateral fluoroscopy. The small vertical incision along the left paraspinal lumbar line centered at the entry point of the spinal needle was marked. Local anesthetic infiltrated into the marked incision. The skin was incised down to the level of the fascia. Sharp K wire was inserted under direct lateral fluoroscopy at the left L4 hemilamina left L4-L5 medial facet junction parallel to the L4-L5 disc space. Serial tube dilators were inserted and the posterior soft tissue was dissected off the posterior bony elements. The final working tube was inserted under direct lateral fluoroscopy medialized and placed parallel the L4-L5 disc space and locked to the table in that position. The operating microscope was brought into the few. The posterior soft tissue was dissected off the lamina and medial facet junction. Using the high-speed drill and [place]ison rongeurs we then performed initially left L4 and subsequently contralateral L4 decompressive laminectomy. Bilateral medial facetectomy and foraminotomy at L4-L5 was also performed. The patient had severe L4-L5 facet hypertrophy and arthropathy that together with ligamenta flavum hypertrophy cause severe central and lateral recess stenosis bilaterally. The thecal sac and the traversing bilateral L5 nerve root are completely decompressed. By the end of procedure the thecal sac became pulsatile. There was a small area of thinning of the dura that was noted. A small piece of Surgicel was placed over the dura. After the wound was copiously irrigated with antibiotic solution and complete hemostasis was obtained, DuraSeal glue was placed over the exposed dura. The tube was then removed. The muscle and fascial layers were then reapproximated with interrupted sutures. The dermal layer was reapproximated with interrupted sutures. The skin was reapproximated with a simple running Rapide 3-0 suture. A sterile dressing was placed on top of the incision site. The patient was then placed supine on the hospital bed. She was then woken up, extubated and transported to the recovery room in stable condition. The patient was able to move her upper and lower extremities equally proximally and distally in the recovery room. Estimated blood loss: 25 cc Blood administered: None Packs/drains: None Type of anesthesia: Gen. Specimen removed: None Wound classification: Clean Incision: Left paraspinal lumbar Skin closure: Simple running Rapide 3-0 suture Patient's condition: Stable Prognosis: Good Surgeon: ADRIANA FREEMAN MD Anesthesia Type: general Estimated Blood Loss: 10 - 50 ml's Transfusion Required: no Complications: no ADRIANA FREEMAN MD May 07, 2017 15:16
[2017-05-07 19:45] VITALS: BP 133/68; RESP 18
[2017-05-07] MEDS: traMADol 50 MG TAB PO PRN (21:03)
[2017-05-08 02:00] VITALS: BP 131/69; RESP 19
[2017-05-08] MEDS: DEXTROSE 5%-0.45% NACL 500 ML IV SCH ×2 (02:30→15:00)
[2017-05-08 05:34] LABS: BASOPHILS % 0.4 % (0.0-2.0); EOSINOPHILS # 0.5 10^3/ul (0.0-0.5); EOSINOPHILS % 4.5 % (0.0-7.0); HEMOGLOBIN 10.4 g/dl (12.0-16.0); LYMPHOCYTES # 2.1 10^3/ul (0.8-2.9); LYMPHOCYTES % 20.6 % (15.0-51.0); MEAN CORPUSCULAR HEMOGLOBIN 29.2 pg (29.0-33.0); MEAN CORPUSCULAR HGB CONC 31.5 g/dl (32.0-37.0); MEAN CORPUSCULAR VOLUME 92.7 fl (82.0-101.0); MEAN PLATELET VOLUME 10.8 fl (7.4-10.4); MONOCYTE # 1.1 10^3/ul (0.3-0.9); MONOCYTES % 10.1 % (0.0-11.0); NEUTROPHILS % 63.9 % (39.0-77.0); PLATELET COUNT 232 10^3/UL (140-415); RED BLOOD COUNT 3.56 10^6/ul (4.20-5.40); RED CELL DISTRIBUTION WIDTH 13.8 % (11.5-14.5); WHITE BLOOD COUNT 10.4 10^3/ul (4.8-10.8)
[2017-05-08 05:55] LABS: CALCIUM 9.3 mg/dl (8.4-10.2); CREATININE 0.74 mg/dl (0.44-1.00); POTASSIUM 4.3 mmol/L (3.5-5.1)
[2017-05-08 08:10] VITALS: BP 127/67; RESP 22
[2017-05-08] MEDS: PANTOPRAZOLE (EC) 40 MG TAB PO SCH (08:37)
[2017-05-08] MEDS: BENAZEPRIL 20 MG TAB PO SCH ×2 (08:38→20:22)
[2017-05-08] MEDS: AMLODIPINE 5 MG TAB PO SCH (08:38)
[2017-05-08] MEDS: traMADol 50 MG TAB PO PRN ×2 (08:45→18:48)
--- NOTE | 2017-05-08 14:55 | DS ---
Date/Time of Note Date/Time of Note DATE: 05/08/17 TIME: 14:55 Discharge Summary Admission/Discharge Info Admit Date/Time May 03, 2017 at 21:24 Discharge Date/Time Hx of Present Illness 76-year-old female presented with back pain which has been going on for last two weeks.. Patient describes the pain as sharp pain, 8/10 scale, is worse upon movement mildly better after taking ibuprofen. Patient has been seen in different emergency department for the same problems. Patient states that she was told by her primary care doctor to come to the emergency department that he will admit her to the hospital. Patient does not have any fever or chills. Patient denies any incontinence. Patient denies any direct trauma and affected area. Patient denies any numbness. Patient states that it is hard for her to walk because of the pain. Initial CT lumbar spine Hospital Course Chart reviewed patient examined she was status post lumbosacral spine surgical procedure done 2 days prior to this dictation. She has continued to have prolonged pain and ecstasy patient and assist with her current pain control medication. Right now she is on a combination of [place] as needed and IV Dilaudid 0.2 mg every 4 as needed pain. Once the nurses says she has been asked with IV Dilaudid frequently. Morning she is taking it 3 times when I examined her it was difficult to wake her. Patient said her pain is moderately uncomfortable at 4/10 after she takes pain control medication she falls asleep states that she was not taking any pain control medications prior to his hospitalization he denies any other side effects associated with current pain medication. Physical functioning with physical therapy not impaired. Mood is good sleeping patterns are good overall function has improved denies nausea vomiting itching mental confusion mental cloudiness dizziness diplopia disorientation, patient is very drowsy. Patient has been asked for frequent dosings of current medication however when I asked her her pain is in her low C- spine not in the lumbosacral spine she states that pain is controlled she denies any lumbosacral spine pain at this time. This was a gnawing type of discomfort not associated with trauma in the past there is no past medical history of abuse of pain control medication she does not drink. Denies any oversedation with her medications at home. Home Meds Reported Medications Acetaminophen* (Acetaminophen*) 500 MG Extra Strength Tablet, 500 MG PO Q4H Y for PAIN AND OR ELEVATED TEMP, TAB 05/03/17 Zolpidem Tartrate* (Zolpidem Tartrate*) 10 Mg Tablet, 10 MG PO QHS Y for INSOMNIA, #30 TAB 07/28/16 Benazepril Hcl* (Benazepril Hcl*) 20 Mg Tablet, 20 MG PO BID, #60 TAB 04/17/16 Discontinued Reported Medications Lorazepam* (Ativan*) 0.5 Mg Tablet, 0.5 MG PO HS Y for SLEEP, #30 TAB 07/28/16 Metformin* (Glucophage*) 500 Mg Tab, 500 MG PO WITH LUNCH DINNER, #60 TAB 04/17/16 Discontinued Scripts Pantoprazole (Protonix) 40 Mg Tabec, 40 MG PO DAILY, #30 TAB Prov:DIVYA FAN MD 04/22/16 Amlodipine Besylate* (Amlodipine Besylate*) 5 Mg Tablet, 5 MG PO DAILY, #90 TAB Prov:DIVYA FAN MD 04/22/16 Primary Care Provider Not On Staff Doctor Time spent on discharge: > 30 minutes Pending Labs Laboratory Tests Test 05/08/17 04:44 White Blood Count 10.410^3/ul (4.8-10.8) Red Blood Count 3.5610^6/ul (4.20-5.40) Hemoglobin 10.4g/dl (12.0-16.0) Hematocrit 33.0% (37.0-47.0) Mean Corpuscular Volume 92.7fl (82.0-101.0) Mean Corpuscular Hemoglobin 29.2pg (29.0-33.0) Mean Corpuscular Hemoglobin Concent 31.5g/dl (32.0-37.0) Red Cell Distribution Width 13.8% (11.5-14.5) Platelet Count 65874^3/UL (140-415) Mean Platelet Volume 10.8fl (7.4-10.4) Neutrophils % 63.9% (39.0-77.0) Lymphocytes % 20.6% (15.0-51.0) Monocytes % 10.1% (0.0-11.0) Eosinophils % 4.5% (0.0-7.0) Basophils % 0.4% (0.0-2.0) Nucleated Red Blood Cells % 0.0/100WBC (0.0-0.0) Neutrophils # (Manual) 6.610^3/ul (1.7-7.5) Lymphocytes # 2.110^3/ul (0.8-2.9) Monocytes # 1.110^3/ul (0.3-0.9) Eosinophils # 0.510^3/ul (0.0-0.5) Basophils # 0.010^3/ul (0.0-0.1) Nucleated Red Blood Cells # 0.010^3/ul (0.0-0.0) Sodium Level 135mmol/L (135-144) Potassium Level 4.3mmol/L (3.5-5.1) Chloride Level 99mmol/L (97-110) Carbon Dioxide Level 27mmol/L (21-31) Anion Gap 13 (8-16) Blood Urea Nitrogen 13mg/dl (7-20) Creatinine 0.74mg/dl (0.44-1.00) Glucose Level 138mg/dl (70-220) Calcium Level 9.3mg/dl (8.4-10.2) PATRICA LOPEZ May 08, 2017 14:55
[2017-05-08 15:24] VITALS: BP 130/67; RESP 20
[2017-05-08 19:12] VITALS: BP 132/58; RESP 16
[2017-05-09 02:04] VITALS: BP 120/57; RESP 16
[2017-05-09] MEDS: DEXTROSE 5%-0.45% NACL 500 ML IV SCH ×2 (03:30→15:53)
[2017-05-09] MEDS: traMADol 50 MG TAB PO PRN ×3 (03:49→16:29)
[2017-05-09 05:11] LABS: BASOPHILS % 0.3 % (0.0-2.0); EOSINOPHILS # 0.5 10^3/ul (0.0-0.5); EOSINOPHILS % 5.3 % (0.0-7.0); HEMOGLOBIN 10.1 g/dl (12.0-16.0); LYMPHOCYTES # 2.5 10^3/ul (0.8-2.9); LYMPHOCYTES % 28.5 % (15.0-51.0); MEAN CORPUSCULAR HEMOGLOBIN 28.8 pg (29.0-33.0); MEAN CORPUSCULAR HGB CONC 31.6 g/dl (32.0-37.0); MEAN CORPUSCULAR VOLUME 91.2 fl (82.0-101.0); MEAN PLATELET VOLUME 10.9 fl (7.4-10.4); MONOCYTE # 0.9 10^3/ul (0.3-0.9); MONOCYTES % 9.9 % (0.0-11.0); NEUTROPHILS % 55.4 % (39.0-77.0); PLATELET COUNT 243 10^3/UL (140-415); RED BLOOD COUNT 3.51 10^6/ul (4.20-5.40); RED CELL DISTRIBUTION WIDTH 13.7 % (11.5-14.5); WHITE BLOOD COUNT 8.7 10^3/ul (4.8-10.8)
[2017-05-09 05:40] LABS: CALCIUM 9.2 mg/dl (8.4-10.2); CREATININE 0.85 mg/dl (0.44-1.00); POTASSIUM 4.2 mmol/L (3.5-5.1)
[2017-05-09 07:34] VITALS: BP 114/60; RESP 19
[2017-05-09] MEDS: AMLODIPINE 5 MG TAB PO SCH (09:11)
[2017-05-09] MEDS: BENAZEPRIL 20 MG TAB PO SCH (09:11)
[2017-05-09] MEDS: PANTOPRAZOLE (EC) 40 MG TAB PO SCH (09:11)
--- NOTE | 2017-05-09 14:51 | PN ---
Date/Time of Note Date/Time of Note DATE: 05/09/17 TIME: 14:50 Assessment/Plan VTE Prophylaxis VTE Prophylaxis Intervention: SCD's Lines/Catheters IV Catheter Type (from Nrsg): Peripheral IV Urinary Cath still in place: No Assessment/Plan Assessment/Plan 1/ Severe central spinal canal stenosis causing Acute on chronic intractable pain,acute lumbar radiculopathy 2. Severe debility due to back pain and Inability to walk safely 3. HTN 4. HL 5. Borderline DM- not on any meds 6. h/o Renal cell CA s/p Right nephrectomy 7. L4-L5, there is severe appearing central canal stenosis, related to 6 mm disk bulge, moderate facet hypertrophy, and ligamentum flavum buckling. Moderate right and mild-moderate left foraminal stenosis. Plan: S/p laminectomy, doing well, pain controlled d/c to SNF today Subjective 24 Hr Interval Summary Free Text/Dictation pain controlled with tramadol Exam/Review of Systems Vital Signs Vitals Vital Signs Date Time Temp Pulse Resp B/P Pulse Ox O2 Delivery O2 Flow Rate FiO2 05/09/17 07:34 98.0 93 19 114/60 98 05/07/17 14:40 21 05/06/17 15:30 Room Air Intake and Output 05/08/17 05/08/17 05/09/17 15:00 23:00 07:00 Intake Total 600 ml 750 ml Output Total 800 ml 600 ml Balance -200 ml 150 ml Results Result Diagram: 05/09/17 0435 05/09/17 0435 Results 24 hrs Laboratory Tests Test 05/09/17 04:35 White Blood Count 8.7 Red Blood Count 3.51 L Hemoglobin 10.1 L Hematocrit 32.0 L Mean Corpuscular Volume 91.2 Mean Corpuscular Hemoglobin 28.8 L Mean Corpuscular Hemoglobin Concent 31.6 L Red Cell Distribution Width 13.7 Platelet Count 243 Mean Platelet Volume 10.9 H Neutrophils % 55.4 Lymphocytes % 28.5 Monocytes % 9.9 Eosinophils % 5.3 Basophils % 0.3 Nucleated Red Blood Cells % 0.0 Neutrophils # (Manual) 4.8 Lymphocytes # 2.5 Monocytes # 0.9 Eosinophils # 0.5 Basophils # 0.0 Nucleated Red Blood Cells # 0.0 Sodium Level 135 Potassium Level 4.2 Chloride Level 100 Carbon Dioxide Level 28 Anion Gap 11 Blood Urea Nitrogen 19 Creatinine 0.85 Glucose Level 142 Calcium Level 9.2 Medications Medications Current Medications Amlodipine Besylate (Norvasc) 5 mg DAILY PO Last administered on 05/09/17 09:11 ; Admin Dose 5 MG; Start 05/04/17 at 09:00 Benazepril HCl (Lotensin) 20 mg BID PO Last administered on 05/09/17 09:11; Admin Dose 20 MG; Start 05/04/17 at 09:00 Pantoprazole (Protonix Tab) 40 mg DAILY PO Last administered on 05/09/17 09:11 ; Admin Dose 40 MG; Start 05/04/17 at 09:00 Ondansetron HCl (Zofran Inj) 4 mg Q4H PRN IV NAUSEA AND/OR VOMITING Last administered on 05/04/17 22:42; Admin Dose 4 MG; Start 05/03/17 at 23:00 Acetaminophen (Tylenol Tab) 650 mg Q6H PRN PO PAIN LEVEL 1-3 OR FEVER; Start at 23:00 Docusate Sodium (Colace) 100 mg Q12H PRN PO CONSTIPATION; Start 05/03/17 at 23: 00 Magnesium Hydroxide (Milk Of Mag) 30 ml DAILY PRN PO CONSTIPATION Last administered on 05/05/17 16:07; Admin Dose 30 ML; Start 05/03/17 at 23:00 Bisacodyl (Dulcolax) 5 mg DAILY PRN PO CONSTIPATION Last administered on 21:03; Admin Dose 5 MG; Start 05/03/17 at 23:00 Bisacodyl (Dulcolax Supp) 10 mg DAILY PRN [place] CONSTIPATION; Start 05/03/17 at 23 :00 Sodium Biphosphate/ Sodium Phosphate (Fleet Enema) 133 ml DAILY PRN [place] CONSTIPATION; Start 05/03/17 at 23:00 Miscellaneous Information 1 ea NOTE XX ; Start 05/03/17 at 23:00 Glucose (Glutose) 15 gm Q15M PRN PO DECREASED GLUCOSE; Start 05/03/17 at 23:00 Glucose (Glutose) 22.5 gm Q15M PRN PO DECREASED GLUCOSE; Start 05/03/17 at 23: 00 Dextrose (D50w Syringe) 25 ml Q15M PRN IV DECREASED GLUCOSE; Start 05/03/17 at 23:00 Dextrose (D50w Syringe) 50 ml Q15M PRN IV DECREASED GLUCOSE; Start 05/03/17 at 23:00 Glucagon (Glucagen) 1 mg Q15M PRN IM DECREASED GLUCOSE; Start 05/03/17 at 23:00 Glucose (Glutose) 15 gm Q15M PRN BUCCAL DECREASED GLUCOSE; Start 05/03/17 at 23 :00 Naloxone HCl 0.2 mg 0.2 mg Q2M PRN IV RR 8 BREATHS/MIN OR LESS; Start 05/06/17 at 12:00 Dextrose/Sodium Chloride (D5-1/2ns) 500 ml @ 40 mls/hr [id number] IV Last administered on 05/07/17 06:08; Admin Dose 40 MLS/HR; Start 05/06/17 at 13:00 Tramadol HCl (Ultram) 50 mg Q6H PRN PO PAIN LEVEL 1-3 Last administered on 09:41; Admin Dose 50 MG; Start 05/07/17 at 13:30 DIVYA FAN MD May 09, 2017 14:51
--- NOTE | 2017-05-09 15:26 | PDOCDIS ---
Discharge Instructions CONDITION Patient Condition: Good HOME CARE INSTRUCTIONS: Special Diet: REGULAR ACTIVITY: Activity Restrictions: Slowly Increase Activity Rest between Activity Avoid heavy lifting Avoid Heavy Housework FOLLOW UP/APPOINTMENTS Follow-up Plan Follow up with Dr.Kalpesh chacon in [facility]. Follow up with Neurosurgery Dr.Sean Teresa in 1-2 week after discharge DIVYA CHACON MD May 09, 2017 15:26
--- NOTE | 2017-05-10 17:52 | DS ---
Date/Time of Note Date/Time of Note DATE: 05/10/17 TIME: 17:52 Discharge Summary Admission/Discharge Info Admit Date/Time May 03, 2017 at 21:24 Discharge Date/Time May 09, 2017 at 16:53 Discharge Diagnosis 1/ Severe central spinal canal stenosis causing Acute on chronic intractable pain,acute lumbar radiculopathy 2. Severe debility due to back pain and Inability to walk safely 3. HTN 4. HL 5. Borderline DM- not on any meds 6. h/o Renal cell CA s/p Right nephrectomy 7. L4-L5, there is severe appearing central canal stenosis, related to 6 mm disk bulge, moderate facet hypertrophy, and ligamentum flavum buckling. Moderate right and mild-moderate left foraminal stenosis.s/p Minimally invasive decompressive L4 laminectomy, Minimally invasive bilateral L4-L5 medial facetectomy and foraminotomy, Minimally invasive left L4-L5 microdiscectomy Patient Condition: Good Consults Hourly Shift Neurosurgery Dr.Sean Frey Procedures Pt underwent Minimally invasive decompressive L4 laminectomy, Minimally invasive bilateral L4-L5 medial facetectomy and foraminotomy, Minimally invasive left L4-L5 microdiscectomy Hx of Present Illness 76-year-old female presented with back pain which has been going on for last two weeks.. Patient describes the pain as sharp pain, 8/10 scale, is worse upon movement mildly better after taking ibuprofen. Patient has been seen in different emergency department for the same problems. Patient states that she was told by her primary care doctor to come to the emergency department that he will admit her to the hospital. Patient does not have any fever or chills. Patient denies any incontinence. Patient denies any direct trauma and affected area. Patient denies any numbness. Patient states that it is hard for her to walk because of the pain. Initial CT lumbar spine showed severe central spinal canal stenosis. Hospital Course Pt was noted to have severe spinal canal stenosis. she was evaluated by neurosurgeyr Dr.Sean Frey. she underwent Minimally invasive decompressive L4 laminectomy, Minimally invasive bilateral L4-L5 medial facetectomy and foraminotomy, Minimally invasive left L4-L5 microdiscectomy. post operative she remained stable, had a PT follow up and she was discharged to SNF for rehab upon discharge Home Meds Reported Medications Acetaminophen* (Acetaminophen*) 500 MG Extra Strength Tablet, 500 MG PO Q4H Y for PAIN AND OR ELEVATED TEMP, TAB 05/03/17 Zolpidem Tartrate* (Zolpidem Tartrate*) 10 Mg Tablet, 10 MG PO QHS Y for INSOMNIA, #30 TAB 07/28/16 Benazepril Hcl* (Benazepril Hcl*) 20 Mg Tablet, 20 MG PO BID, #60 TAB 04/17/16 Follow-up Plan Follow up with Dr.Kalpesh Fan in 1-2 week. follow up with Neurosurgery Dr.sean Frey in 2-3 weeks after discharge Primary Care Provider Not On Staff Doctor Time spent on discharge: > 30 minutes DIVYA FAN MD May 10, 2017 17:52 Primary Care Provider Not On Staff Doctor DIVYA FAN MD May 10, 2017 17:52
== END 2017-05-09 16:53 | DRG 520 ==
LOC: FTE 17:11 → MS1 21:24
PROVIDERS: ADMIT Internal Medicine Nephrology; ATTEND Internal Medicine Nephrology
PROC: 01NB0ZZ Release Lumbar Nerve, Open Approach (ICD-10-PCS; 2017-05-06)
PROC: 4A11X4G Monitoring of Peripheral Nervous Electrical Activity, Intraoperative, External Approach (ICD-10-PCS; 2017-05-06)
PROC: 0SB20ZZ Excision of Lumbar Vertebral Disc, Open Approach (ICD-10-PCS; principal; 2017-05-06 08:00)
DX: M51.16 Intervertebral disc disorders with radiculopathy, lumbar region (principal); E11.42 Type 2 diabetes mellitus with diabetic polyneuropathy; D64.9 Anemia, unspecified; I10 Essential (primary) hypertension; G89.29 Other chronic pain; E78.5 Hyperlipidemia, unspecified; Z85.528 Personal history of other malignant neoplasm of kidney; Z90.5 Acquired absence of kidney; E78.00 Pure hypercholesterolemia, unspecified; F32.9 Major depressive disorder, single episode, unspecified; Z98.84 Bariatric surgery status; Z90.49 Acquired absence of other specified parts of digestive tract
CPT/HCPCS: 36415; 71010; 72100; 72131; 72148; 80048; 80053; 80061; 81001; 82962; 84484; 85025; 85610; 85730; 86850; 86900; 86901; 93005; 93306; 96374; 96375; 97110; 97116; 97162; 97530; C9250; J0690; J1170; J2250; J2270; J2405; J2710; J2765; J3010; J7042; J7999

== ENCOUNTER 2017-07-22 02:43 | Emergency (ER) | payer MEDICARE, OTHER ==
[~2017-07-22] VITALS: Ht 154.9 cm; Wt 59.0 kg
[~2017-07-22 02:43] MED LIST changes: +ACET-141 PO; -AMLO-145 PO; -LORA-441 PO; -METF500T4 PO; -PANT40TA4 PO
[2017-07-22 02:55] VITALS: Ht 154.9 cm; Wt 59.0 kg
--- NOTE | 2017-07-22 03:15 | ERD ---
ER Documentation Chief Complaint Chief Complaint c/o right sided body pain s/p fell out of bed @ 2230. No KO. HPI The patient is a 77-year-old female, presenting to the ER because of right sided body pain after she fell off her bed about 10:30 PM. She denies headache , neck pain, chest pain, complaint of right upper back pain, denies anterior chest pain, dyspnea, abdominal pain, vomiting, hip pain, lower extremity pain. She does not smoke nor drink, walks with a walker Past medical history: Hypertension, depression, dyslipidemia, spinal stenosis, chronic pain syndrome, lumbar radiculopathy, chronic low back pain Past surgical history: Right nephrectomy due to renal carcinoma, back surgery ROS All systems reviewed and are negative except as per history of present illness. Medications Home Meds Active Scripts Tramadol HCl (Tramadol HCl) 50 Mg Tablet, 50 MG PO Q6, #10 TAB Prov:BENJAMÍN SERRANO MD 07/22/17 Reported Medications Acetaminophen* (Acetaminophen*) 500 MG Extra Strength Tablet, 500 MG PO Q4H Y for PAIN AND OR ELEVATED TEMP, TAB 05/03/17 Zolpidem Tartrate* (Zolpidem Tartrate*) 10 Mg Tablet, 10 MG PO QHS Y for INSOMNIA, #30 TAB 07/28/16 Benazepril Hcl* (Benazepril Hcl*) 20 Mg Tablet, 20 MG PO BID, #60 TAB 04/17/16 Allergies Allergies: Coded Allergies: Penicillins (Unverified Allergy, Mild, 05/03/17) PMhx/Soc Medical and Surgical Hx: pt denies Medical Hx, pt denies Surgical Hx History of Surgery: Yes Anesthesia Reaction: No Hx Neurological Disorder: No Hx Respiratory Disorders: No Hx Cardiac Disorders: Yes (HTN) Hx Psychiatric Problems: Yes (DEPRESSION) Hx Miscellaneous Medical Probl: Yes (HTN, depression, renal cell CA s/p nephrectomy, hypercholesterolemia) Hx Alcohol Use: No Hx Substance Use: No Hx Tobacco Use: No Smoking Status: Never smoker Physical Exam Vitals Vital Signs Date Time Temp Pulse Resp B/P Pulse Ox O2 Delivery O2 Flow Rate FiO2 07/22/17 02:55 98.2 82 18 190/84 99 Physical Exam Const: No acute distress. Head: Atraumatic. Eyes: Normal Conjunctiva. ENT: Normal External Ears, Nose and Mouth. Neck: Full range of motion. No meningismus. Resp: Clear to auscultation bilaterally. Cardio: Regular rate and rhythm. Abd: Soft, non distended, normal bowel sounds, non tender. Skin: No petechiae or rashes. Back: No midline or flank tenderness.No spinal tenderness Ext: No cyanosis, or edema. Neur: Awake and alert. No focal deficit Psych: Anxious. Results 24 hrs Current Medications Medications (Trade) Dose Ordered Sig/Bryan Route PRN Reason Start Time Stop Time Status Last Admin Dose Admin Acetaminophen/ Hydrocodone Bitart ([place] (10/325)) 1 tab ONCE ONCE PO 07/22/17 03:30 07/22/17 03:31 Cancel Ondansetron HCl (Zofran Odt) 4 mg ONCE STAT ODT 07/22/17 03:22 07/22/17 03:24 DC 07/22/17 03:41 Morphine Sulfate (morphine) 4 mg ONCE STAT IM 07/22/17 03:33 07/22/17 03:34 DC 07/22/17 03:42 Procedures/MDM MEDICAL MAKING DECISION: The patient is a 77-year-old female, presenting with acute myalgia after fall. She was treated with morphine 4 mg IM for pain and Zofran ODT for nausea with good response X The differential diagnoses considered include but are not limited to fracture ribs, chest wall contusion/strain, musculoskeletal pain Departure Diagnosis: Primary Impression: Myalgia Additional Impression: Fall with no significant injury Condition: Good Comments She was discharged with [facility] I discussed the findings with the patient. I advised the patient to follow-up with the primary physician in about 1-2 days, sooner if needed and return if any concern. Disclaimer: Inadvertent spelling and grammatical errors are likely due to EHR/ dictation software use and do not reflect on the overall quality of patient care. Also, please note that the electronic time recorded on this note does not necessarily reflect the actual time of the patient encounter. BENJAMÍN SERRANO MD Jul 22, 2017 03:15
[2017-07-22] MEDS ORDERED: ONDANSETRON (ODT) 4 MG TAB ODT STA (03:22)
[2017-07-22] MEDS ORDERED: HYDROCODONE/APAP (10/325) TAB PO ONE (03:30)
[2017-07-22] MEDS ORDERED: morphine 4 MG/ML VIAL IM STA (03:33)
--- NOTE | 2017-07-22 04:15 | RADRPT ---
PROCEDURE: XR Chest. CLINICAL INDICATION: fall TECHNIQUE: Single portable view of the chest was obtained COMPARISON: CR PORT CHEST 04/21/2016; CR PORTABLE CHEST 03/03/2008 FINDINGS: The heart is stable in size and configuration. There is mild elevation of the right hemidiaphragm. T he lungs are clear. Senescent osseous changes are present. IMPRESSION: 1. No acute pulmonary disease. 2. Senescent osseous changes. RPTAT: HRSR Physician Adwoa Date Time Electronically viewed and signed by [place] Physician on 07/22/2017 04:15 RR/
[2017-07-22] MEDS ORDERED: TRAM50TA2 PO (04:27)
[2017-07-22 05:43] VITALS: BP 156/80; PULSE 81; RESP 18; TEMP 98.2
== END 2017-07-22 05:44 | disposition home or self-care (01) ==
LOC: E/R 02:43
DX: M79.1 Myalgia (principal); I10 Essential (primary) hypertension
CPT/HCPCS: 71010; 96372; 99284; J2270

== ENCOUNTER 2017-09-07 12:30 | Emergency (ER) | END 2017-09-07 22:15 | disposition home or self-care (01) ==